=== PATIENT | female | born 1970 | race African-American/Black ===

== ENCOUNTER 2019-01-14 11:15 | Inpatient (IN) | payer OTHER ==
[2019-01-14 12:00] VITALS: BMI 40.7
--- NOTE | 2019-01-14 13:01 | HP ---
COWS - Scale Resting Pulse: 1= [place] 81-100 Sweatin=Flushed/Facial Moisture Restless Observation: 1= Difficult to Sit Still Pupil Size: 0= Normal to Room Light Bone or Joint Aches: 2= Severe Diffuse Aches (B/l hands, legs) Runny Nose/ Eye Tearin= Constantly Teary/Runny GI Upset > 30mins: 1= Stomach Cramp (nausea, no vomiting or diarrhea but feels its coming) Tremor Observation: 2= Slight Tremor Visible Yawning Observation: 0= None Anxiety or Irritability: 2=Irritable/Anxious Goose Flesh Skin: 0=Smooth Skin COWS Score: 15 CIWA Score - Admission Criteria OASAS Guidelines: Admission for Medically Managed Detox: Requires at least one of the followin. CIWA greater than 12 2. Seizures within the past 24 hours 3. Delirium tremens within the past 24 hours 4. Hallucinations within the past 24 hours 5. Acute intervention needed for co occurring medical disorder 6. Acute intervention needed for co occurring psychiatric disorder 7. Severe withdrawal that cannot be handled at a lower level of care (continued vomiting, continued diarrhea, abnormal vital signs) requiring intravenous medication and/or fluids 8. Admitting History and Physical - Admission History of Present Illness: 48 y.o. F PMH HTN, DM type 2 presenting for heroin detox. Has done detox and rehab in the past (finished this March) in [facility]. Heroin: Daily use. Uses 10 bags/ day. Last used this morning, 1 bag. Snorts, never injected in the past. Since age 13. Longest sober period 6.5 months. Cigarettes: 10 cigarettes per day for over 30 years. PSH: hysterectomy, cholecystectomy SH: Lives in [facility] in [place]. Lives w/ 5 roommates. Not currently working. Good family support system. All:None Meds: metformin, lisinopril, seroquel, trazadone Family hx: diabetes, htn both sides - Past Medical History Cardiovascular: Yes: HTN Endocrine: Yes: Diabetes Mellitus - Past Surgical History Past Surgical History: Yes: Cholecystectomy, Hysterectomy - Smoking History Smoking history: Current every day smoker Have you smoked in the past 12 months: Yes Aproximately how many cigarettes per day: 10 - Alcohol/Substance Use Hx Alcohol Use: No - Social History Usual Living Arrangement: Yes: Other (city housing with roommates) History of Recent Travel: No Admission ROS [facility] - HPI Allergies/Adverse Reactions: Allergies Allergy/AdvReac Type Severity Reaction Status Date / Time No Known Allergies Allergy Verified 01/14/19 11:45 - Ebola screening Have you traveled outside of the country in the last 21 days: No Have you had contact with anyone from an Ebola affected area: No Do you have a fever: No - Review of Systems Constitutional: Chills, Diaphoresis, Weakness EENT: reports: No Symptoms Reported Respiratory: reports: No Symptoms reported Cardiac: reports: No Symptoms Reported GI: reports: Nausea : reports: Other (itching) Musculoskeletal: reports: Joint Pain Integumentary: reports: No Symptoms Reported Neuro: reports: No Symptoms reported Endocrine: reports: No Symptoms Reported Hematology: reports: No Symptoms Reported Psychiatric: reports: Mood/Affect Appropiate Patient History - Smoking Cessation Smoking history: Current every day smoker Initiated information on smoking cessation: Yes - Substances abused Heroin Substance route: Inhalation Frequency: Daily Amount used: 10 bags Age of first use: 13 Date of last use: 01/14/19 Admission Physical Exam [facility] - Vital Signs Vital Signs: Vital Signs - 24 hr 01/14/19 11:53 Temperature 97.9 F Pulse Rate 91 H Respiratory 18 Rate Blood Pressure 136/91 - Physical General Appearance: Yes: Within Normal Limits Respiratory: Yes: Within Normal Limits, Lungs Clear, Normal Breath Sounds Neck: Yes: Within Normal Limits Cardiology: Yes: Within Normal Limits, Regular Rhythm, Regular Rate, S1, S2 Abdominal: Yes: Normal Bowel Sounds, Non Tender, Soft Back: Yes: Within Normal Limits Musculoskeletal: Yes: Within Normal Limits Extremities: Yes: Within Normal Limits Neurological: Yes: car oiler II-XII NML intact, Alert Integumentary: Yes: Within Normal Limits - Diagnostic (1) Opioid abuse Current Visit: Yes Status: Acute Cleared for Admission [facility] - Detox or Rehab [facility] Level of Care: Medically Supervised Screened but not Admitted - Documentation of Visit Screened but not Admitted: No Breathalyzer - Breathalyzer Breathalyzer: 0 Urine Drug Screen - Test Device Lot number: [id number] Expiration date: 09/20/20 - Control Is test valid?: Yes - Results Drug screen NEGATIVE: No Urine drug screen results: FEN-Fentanyl, MOP-Opiates Inpatient Rehab Admission - Rehab Decision to Admit Inpatient rehab admission?: No
[2019-01-14] MEDS ORDERED: MAG HYDROX/AL HYDROX/SIMETH 30 ML UNIT-DOSE CUP PO PRN (13:32)
[2019-01-14] MEDS ORDERED: NICOTINE POLACRILEX 2 MG GUM BUC PRN (13:32)
[2019-01-14] MEDS ORDERED: BISMUTH SUBSALICYLATE 262 MG/15 ML BTL PO PRN (13:32)
[2019-01-14] MEDS ORDERED: MAGNESIUM HYDROX 2400MG/30ML ORAL SUSPENSION 30 ML CUP PO PRN (13:32)
[2019-01-14] MEDS ORDERED: IBUPROFEN 400 MG TABLET (FP) PO PRN (13:32)
[2019-01-14] MEDS ORDERED: METHOCARBAMOL 500 MG TABLET PO PRN (13:32)
[2019-01-14] MEDS ORDERED: MENTHOL/PHENOL 1 EACH UD MM PRN (13:32)
[2019-01-14] MEDS ORDERED: MAGNESIUM CITRATE 300 ML BOTTLE PO PRN (13:32)
[2019-01-14] MEDS ORDERED: MELATONIN 5 MG TABLETS PO PRN (13:32)
[2019-01-14] MEDS ORDERED: ACETAMINOPHEN 325 MG TABLET (FP) PO PRN ×2 (13:32)
--- NOTE | 2019-01-14 13:37 | PN ---
Teaching Attending Note Name of Resident: Chloé Horner ATTENDING PHYSICIAN STATEMENT I saw and evaluated the patient. I reviewed the resident's note and discussed the case with the resident. I agree with the resident's findings and plan as documented. SUBJECTIVE: 48 y.o. pt here for opioid use , reports 10 bags heroin via inhalation daily , most recent detox 1 yr ago in [place] , referred to this facility by [facility] [employer] . PMHx : HTN, DM type 2 tobacco : 1/2 ppd PSH: hysterectomy, cholecystectomy OBJECTIVE: wnwd Vital Signs - 24 hr 01/14/19 11:53 Temperature 97.9 F Pulse Rate 91 H Respiratory 18 Rate Blood Pressure 136/91 QTc 453 ms 1st deg AV block ASSESSMENT AND PLAN: Opioid dependence - Methadone detox f/up w/ PCP , cardiology as scheduled .
[2019-01-14] MEDS ORDERED: cloNIDine HCL 0.1 MG TABLET PO PRN (14:50)
[2019-01-14] MEDS ORDERED: METHADONE HCL 10 MG TABLET (FOR DETOX USE ONLY) PO ONE (14:50)
[2019-01-14] MEDS: NICOTINE 14 MG/24 HOURS TOPICAL PATCH TD SCH (14:54)
[2019-01-14] MEDS ORDERED: FLUCONAZOLE 150 MG TABLET PO SCH (15:00)
[2019-01-14] MEDS ORDERED: FLUCONAZOLE 50 MG TABLET PO SCH (15:00)
[2019-01-14] MEDS: LISINOPRIL 10 MG TABLET (FP) PO SCH (15:12)
--- NOTE | 2019-01-14 15:53 | EKG ---
Test Reason : Blood Pressure : / mmHG Vent. Rate : 071 BPM Atrial Rate : 071 BPM P-R Int : 220 ms QRS Dur : 080 ms QT Int : 420 ms P-R-T Axes : 046 031 028 degrees QTc Int : 456 ms SINUS RHYTHM WITH 1ST DEGREE A-V BLOCK OTHERWISE NORMAL ECG NO PREVIOUS ECGS AVAILABLE Confirmed by ABNER MCGREGOR, FAINA ([id number]) on 01/14/2019 3:52:51 PM Referred By: Confirmed By:FAINA LEVINE MD
[2019-01-14 18:37] LABS: HEMATOCRIT 40.3 % (32.4-45.2); HEMOGLOBIN 12.8 GM/dL (10.7-15.3); MCH 25.4 pg (25.7-33.7); MCHC 31.7 g/dl (32.0-36.0); MEAN CELL VOLUME 80.1 fl (80-96); MEAN PLT VOLUME 8.1 fl (7.5-11.1); PLATELET COUNT 419 K/MM3 (134-434); RBC 5.04 M/mm3 (3.60-5.2); RDW 15.9 % (11.6-15.6); WHITE BLOOD COUNT 9.5 K/mm3 (4.0-10.0)
[2019-01-14 18:47] LABS: ALBUMIN 3.6 g/dl (3.4-5.0); BILIRUBIN,TOTAL 0.3 mg/dL (0.2-1); BLOOD UREA NITROGEN 10.9 mg/dL (7-18); CALCIUM 9.4 mg/dL (8.5-10.1); POTASSIUM 4.4 mmol/L (3.5-5.1); TOT PROT 7.9 g/dl (6.4-8.2)
[2019-01-14] MEDS: QUEtiapine FUMARATE 200 MG TABLET PO SCH (22:30)
[2019-01-14] MEDS: THIAMINE HCL 100 MG TABLET (FP) PO SCH (22:31)
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
[2019-01-15] MEDS ORDERED: SUVOREXANT 10 MG TABLET PO PRN ×2 (08:54→22:00)
[2019-01-15] MEDS ORDERED: METHADONE HCL 5 MG TABLET (FOR DETOX USE ONLY) ONE (09:02)
[2019-01-15] MEDS ORDERED: METHADONE HCL 10 MG TABLET (FOR DETOX USE ONLY) ONE (09:02)
[2019-01-15] MEDS ORDERED: METHADONE (DETOX) 20 MG, METHADONE (DETOX) 5 MG PO ONE (10:00)
[2019-01-15] MEDS: PRENATAL VITAMINS W/ FOLIC ACID TABLET (FP) PO SCH (10:25)
[2019-01-15] MEDS: LISINOPRIL 10 MG TABLET (FP) PO SCH (10:26)
[2019-01-15] MEDS: NICOTINE 14 MG/24 HOURS TOPICAL PATCH TD SCH (10:26)
--- NOTE | 2019-01-15 11:11 | PN ---
BHS COWS - Scale Resting Pulse: 1= [place] [id number] Sweatin= Chills/Flushing Restless Observation: 1= Difficult to Sit Still Pupil Size: 1= Pupils >than Normal Bone or Joint Aches: 2= Severe Diffuse Aches Runny Nose/ Eye Tearin= Nasal Congestion GI Upset > 30mins: 2= Nausea/Diarrhea Tremor Observation of Outstretched Hands: 0= None Yawning Observation: 0= None Anxiety or Irritability: 1=Feels Anxious/Irritable Goose Flesh Skin: 0=Smooth Skin COWS Score: 10 BHS Progress Note (SOAP) Subjective: interrupted sleep, sweats, nausea Objective: 01/15/19 11:09 Vital Signs Temperature 98.1 F 01/15/19 09:53 Pulse Rate 86 01/15/19 09:53 Respiratory Rate 16 01/15/19 09:53 Blood Pressure 122/70 01/15/19 09:53 O2 Sat by Pulse Oximetry (%) Laboratory Tests 01/14/19 01/14/19 01/14/19 12:50 14:13 14:20 WBC RBC Hgb Hct MCV MCH MCHC RDW Plt Count MPV Sodium Potassium Chloride Carbon Dioxide Anion Gap BUN Creatinine Est GFR (CKD-EPI)AfAm Est GFR (CKD-EPI)NonAf POC Glucometer 116 Random Glucose Calcium Total Bilirubin AST ALT Alkaline Phosphatase Total Protein Albumin POC Urine HCG, Qual Negative HIV 1&2 Antibody Screen Negative HIV P24 Antigen Negative 01/14/19 01/14/19 01/14/19 14:50 14:50 16:29 WBC 9.5 RBC 5.04 Hgb 12.8 Hct 40.3 MCV 80.1 MCH 25.4 L MCHC 31.7 L RDW 15.9 H Plt Count 419 MPV 8.1 Sodium 140 Potassium 4.4 Chloride 106 Carbon Dioxide 31 Anion Gap 3 L BUN 10.9 Creatinine 1.0 Est GFR (CKD-EPI)AfAm 77.15 Est GFR (CKD-EPI)NonAf 66.57 POC Glucometer 158 Random Glucose 92 Calcium 9.4 Total Bilirubin 0.3 AST 10 L ALT 14 Alkaline Phosphatase 94 Total Protein 7.9 Albumin 3.6 POC Urine HCG, Qual HIV 1&2 Antibody Screen HIV P24 Antigen 01/15/19 07:15 WBC RBC Hgb Hct MCV MCH MCHC RDW Plt Count MPV Sodium Potassium Chloride Carbon Dioxide Anion Gap BUN Creatinine Est GFR (CKD-EPI)AfAm Est GFR (CKD-EPI)NonAf POC Glucometer 117 Random Glucose Calcium Total Bilirubin AST ALT Alkaline Phosphatase Total Protein Albumin POC Urine HCG, Qual HIV 1&2 Antibody Screen HIV P24 Antigen pt aox3 lying in bed in [facility] . Assessment: 01/15/19 11:10 withdrawal sx's Plan: cont. detox increase fluids f/up pending labs
[2019-01-15] MEDS ORDERED: FLU VACCINE QUAD 60 MCG/0.5 ML (MDV 19-20) IM ONE (12:00)
[2019-01-15] MEDS: QUEtiapine FUMARATE 200 MG TABLET PO SCH (12:35)
[2019-01-15] MEDS: ARIPiprazole 10 MG TABLET PO SCH (14:34)
[2019-01-15] MEDS: THIAMINE HCL 100 MG TABLET (FP) PO SCH (22:23)
[2019-01-15] MEDS: SUVOREXANT 10 MG TABLET PO PRN (22:23)
[2019-01-16] MEDS ORDERED: METHADONE HCL 10 MG TABLET (FOR DETOX USE ONLY) PO ONE (10:00)
[2019-01-16] MEDS: ARIPiprazole 10 MG TABLET PO SCH (11:02)
[2019-01-16] MEDS: hydrOXYzine PAMOATE 25 MG CAPSULE (FP) PO PRN ×2 (11:07→21:41)
[2019-01-16] MEDS: PRENATAL VITAMINS W/ FOLIC ACID TABLET (FP) PO SCH (11:08)
[2019-01-16] MEDS: NICOTINE 14 MG/24 HOURS TOPICAL PATCH TD SCH (11:08)
[2019-01-16] MEDS: LISINOPRIL 10 MG TABLET (FP) PO SCH (11:29)
[2019-01-16] MEDS ORDERED: FLU VACCINE QUAD 60 MCG/0.5 ML (MDV 19-20) IM ONE (12:00)
--- NOTE | 2019-01-16 13:26 | PN ---
BHS COWS - Scale Resting Pulse: 0= [place] 80 or Below Sweatin= Beads of Sweat on Face Restless Observation: 1= Difficult to Sit Still Pupil Size: 0= Normal to Room Light Bone or Joint Aches: 2= Severe Diffuse Aches Runny Nose/ Eye Tearin= None GI Upset > 30mins: 0= None Tremor Observation of Outstretched Hands: 0= None Yawning Observation: 0= None Anxiety or Irritability: 2=Irritable/Anxious Goose Flesh Skin: 0=Smooth Skin COWS Score: 8 BHS Progress Note (SOAP) Subjective: c/o sweats, headache, muscle aches, and anxiety. Objective: 01/16/19 13:25 Vital Signs 01/16/19 01/16/19 06:47 08:00 Temperature 97.7 F 99 F Pulse Rate 67 85 Respiratory 20 Rate Blood Pressure 95/60 106/66 Lab Results WBC 9.5 K/mm3 (4.0-10.0) 01/14/19 14:50 RBC 5.04 M/mm3 (3.60-5.2) 01/14/19 14:50 Hgb 12.8 GM/dL (10.7-15.3) 01/14/19 14:50 Hct 40.3 % (32.4-45.2) 01/14/19 14:50 MCV 80.1 fl (80-96) 01/14/19 14:50 MCHC 31.7 g/dl (32.0-36.0) L 01/14/19 14:50 RDW 15.9 % (11.6-15.6) H 01/14/19 14:50 Plt Count 419 K/MM3 (134-434) 01/14/19 14:50 Sodium 140 mmol/L (136-145) 01/14/19 14:50 Potassium 4.4 mmol/L (3.5-5.1) 01/14/19 14:50 Chloride 106 mmol/L (98-107) 01/14/19 14:50 Carbon Dioxide 31 mmol/L (21-32) 01/14/19 14:50 Anion Gap 3 MMOL/L (8-16) L 01/14/19 14:50 BUN 10.9 mg/dL (7-18) 01/14/19 14:50 Creatinine 1.0 mg/dL (0.55-1.3) 01/14/19 14:50 Random Glucose 92 mg/dL (74-106) 01/14/19 14:50 Calcium 9.4 mg/dL (8.5-10.1) 01/14/19 14:50 Labs noted. Assessment: 01/16/19 13:26 AOX3, in no acute respiratory distress. Full ROM, ambulating in the unit. withdrawal symptoms. Plan: continue detox.
[2019-01-16] MEDS: SUVOREXANT 10 MG TABLET PO PRN (21:41)
[2019-01-16] MEDS: THIAMINE HCL 100 MG TABLET (FP) PO SCH (21:41)
[2019-01-17] MEDS: hydrOXYzine PAMOATE 25 MG CAPSULE (FP) PO PRN ×4 (05:25→23:50)
[2019-01-17] MEDS ORDERED: METHADONE HCL 5 MG TABLET (FOR DETOX USE ONLY) ONE (09:37)
[2019-01-17] MEDS ORDERED: METHADONE HCL 10 MG TABLET (FOR DETOX USE ONLY) ONE (09:38)
[2019-01-17] MEDS ORDERED: METHADONE (DETOX) 10 MG, METHADONE (DETOX) 5 MG PO ONE (10:00)
[2019-01-17] MEDS: ARIPiprazole 10 MG TABLET PO SCH (10:43)
[2019-01-17] MEDS: PRENATAL VITAMINS W/ FOLIC ACID TABLET (FP) PO SCH (10:43)
[2019-01-17] MEDS: NICOTINE 14 MG/24 HOURS TOPICAL PATCH TD SCH (10:43)
[2019-01-17] MEDS: LISINOPRIL 10 MG TABLET (FP) PO SCH (10:44)
--- NOTE | 2019-01-17 16:22 | PN ---
BHS COWS - Scale Resting Pulse: 0= [place] 80 or Below Sweatin= Chills/Flushing Restless Observation: 0= Sits Still Pupil Size: 0= Normal to Room Light Bone or Joint Aches: 1= Mild Discomfort Runny Nose/ Eye Tearin= None GI Upset > 30mins: 1= Stomach Cramp Tremor Observation of Outstretched Hands: 2= Slight Tremor Visible Yawning Observation: 1= 1-2x During Session Anxiety or Irritability: 1=Feels Anxious/Irritable Goose Flesh Skin: 0=Smooth Skin COWS Score: 7 BHS Progress Note (SOAP) Subjective: Chills, sweating, interrupted sleep Objective: 01/17/19 16:20 Last Vital Signs Temp Pulse Resp BP Pulse Ox 99.1 F 71 18 122/74 01/17/19 14:00 01/17/19 14:00 01/17/19 14:00 01/17/19 14:00 Laboratory Tests 01/14/19 01/14/19 01/14/19 12:50 14:13 14:20 WBC RBC Hgb Hct MCV MCH MCHC RDW Plt Count MPV Sodium Potassium Chloride Carbon Dioxide Anion Gap BUN Creatinine Est GFR (CKD-EPI)AfAm Est GFR (CKD-EPI)NonAf POC Glucometer 116 Random Glucose Calcium Total Bilirubin AST ALT Alkaline Phosphatase Total Protein Albumin POC Urine HCG, Qual Negative RPR Titer HIV 1&2 Antibody Screen Negative HIV P24 Antigen Negative 01/14/19 01/14/19 01/14/19 14:50 14:50 14:50 WBC 9.5 RBC 5.04 Hgb 12.8 Hct 40.3 MCV 80.1 MCH 25.4 L MCHC 31.7 L RDW 15.9 H Plt Count 419 MPV 8.1 Sodium 140 Potassium 4.4 Chloride 106 Carbon Dioxide 31 Anion Gap 3 L BUN 10.9 Creatinine 1.0 Est GFR (CKD-EPI)AfAm 77.15 Est GFR (CKD-EPI)NonAf 66.57 POC Glucometer Random Glucose 92 Calcium 9.4 Total Bilirubin 0.3 AST 10 L ALT 14 Alkaline Phosphatase 94 Total Protein 7.9 Albumin 3.6 POC Urine HCG, Qual RPR Titer Nonreactive HIV 1&2 Antibody Screen HIV P24 Antigen 01/14/19 01/15/19 01/15/19 16:29 07:15 17:04 WBC RBC Hgb Hct MCV MCH MCHC RDW Plt Count MPV Sodium Potassium Chloride Carbon Dioxide Anion Gap BUN Creatinine Est GFR (CKD-EPI)AfAm Est GFR (CKD-EPI)NonAf POC Glucometer 158 117 89 Random Glucose Calcium Total Bilirubin AST ALT Alkaline Phosphatase Total Protein Albumin POC Urine HCG, Qual RPR Titer HIV 1&2 Antibody Screen HIV P24 Antigen 01/16/19 01/17/19 16:52 05:27 WBC RBC Hgb Hct MCV MCH MCHC RDW Plt Count MPV Sodium Potassium Chloride Carbon Dioxide Anion Gap BUN Creatinine Est GFR (CKD-EPI)AfAm Est GFR (CKD-EPI)NonAf POC Glucometer 74 100 Random Glucose Calcium Total Bilirubin AST ALT Alkaline Phosphatase Total Protein Albumin POC Urine HCG, Qual RPR Titer HIV 1&2 Antibody Screen HIV P24 Antigen Labs reviewed Assessment: 01/17/19 16:21 Withdrawal sxs Plan: Continue detox Encouraged PO water intake
[2019-01-17] MEDS: SUVOREXANT 10 MG TABLET PO PRN (23:00)
[2019-01-17] MEDS: THIAMINE HCL 100 MG TABLET (FP) PO SCH (23:00)
[2019-01-18] MEDS: hydrOXYzine PAMOATE 25 MG CAPSULE (FP) PO PRN ×2 (08:41→18:54)
[2019-01-18] MEDS ORDERED: METHADONE HCL 10 MG TABLET (FOR DETOX USE ONLY) PO ONE (10:00)
[2019-01-18] MEDS: PRENATAL VITAMINS W/ FOLIC ACID TABLET (FP) PO SCH (11:12)
[2019-01-18] MEDS: ARIPiprazole 10 MG TABLET PO SCH (11:12)
[2019-01-18] MEDS: NICOTINE 14 MG/24 HOURS TOPICAL PATCH TD SCH (11:12)
[2019-01-18] MEDS: LISINOPRIL 10 MG TABLET (FP) PO SCH (11:13)
--- NOTE | 2019-01-18 12:55 | PN ---
BHS COWS - Scale Resting Pulse: 0= [place] 80 or Below Sweatin= No chills or Flushing Restless Observation: 0= Sits Still Pupil Size: 1= Pupils >than Normal Bone or Joint Aches: 2= Severe Diffuse Aches Runny Nose/ Eye Tearin= None GI Upset > 30mins: 0= None Tremor Observation of Outstretched Hands: 0= None Yawning Observation: 0= None Anxiety or Irritability: 2=Irritable/Anxious Goose Flesh Skin: 0=Smooth Skin COWS Score: 5 BHS Progress Note (SOAP) Subjective: PATIENT CURRENTLY ON METHADONE DETOX FOR OPIOD DEPENDENCE. ROS: PATIENT C/O BODY ACHES, SLEEP DISTURBANCE AND FEELING ANXIOUS. Objective: 01/18/19 12:53 Laboratory Tests 01/14/19 01/14/19 01/14/19 12:50 14:13 14:20 WBC RBC Hgb Hct MCV MCH MCHC RDW Plt Count MPV Sodium Potassium Chloride Carbon Dioxide Anion Gap BUN Creatinine Est GFR (CKD-EPI)AfAm Est GFR (CKD-EPI)NonAf POC Glucometer 116 Random Glucose Calcium Total Bilirubin AST ALT Alkaline Phosphatase Total Protein Albumin POC Urine HCG, Qual Negative RPR Titer HIV 1&2 Antibody Screen Negative HIV P24 Antigen Negative 01/14/19 01/14/19 01/14/19 14:50 14:50 14:50 WBC 9.5 RBC 5.04 Hgb 12.8 Hct 40.3 MCV 80.1 MCH 25.4 L MCHC 31.7 L RDW 15.9 H Plt Count 419 MPV 8.1 Sodium 140 Potassium 4.4 Chloride 106 Carbon Dioxide 31 Anion Gap 3 L BUN 10.9 Creatinine 1.0 Est GFR (CKD-EPI)AfAm 77.15 Est GFR (CKD-EPI)NonAf 66.57 POC Glucometer Random Glucose 92 Calcium 9.4 Total Bilirubin 0.3 AST 10 L ALT 14 Alkaline Phosphatase 94 Total Protein 7.9 Albumin 3.6 POC Urine HCG, Qual RPR Titer Nonreactive HIV 1&2 Antibody Screen HIV P24 Antigen 01/14/19 01/15/19 01/15/19 16:29 07:15 17:04 WBC RBC Hgb Hct MCV MCH MCHC RDW Plt Count MPV Sodium Potassium Chloride Carbon Dioxide Anion Gap BUN Creatinine Est GFR (CKD-EPI)AfAm Est GFR (CKD-EPI)NonAf POC Glucometer 158 117 89 Random Glucose Calcium Total Bilirubin AST ALT Alkaline Phosphatase Total Protein Albumin POC Urine HCG, Qual RPR Titer HIV 1&2 Antibody Screen HIV P24 Antigen 01/16/19 01/17/19 01/17/19 16:52 05:27 16:24 WBC RBC Hgb Hct MCV MCH MCHC RDW Plt Count MPV Sodium Potassium Chloride Carbon Dioxide Anion Gap BUN Creatinine Est GFR (CKD-EPI)AfAm Est GFR (CKD-EPI)NonAf POC Glucometer 74 100 86 Random Glucose Calcium Total Bilirubin AST ALT Alkaline Phosphatase Total Protein Albumin POC Urine HCG, Qual RPR Titer HIV 1&2 Antibody Screen HIV P24 Antigen Vital Signs Temperature 99.0 F 01/18/19 09:53 Pulse Rate 68 01/18/19 09:53 Respiratory Rate 20 01/18/19 09:53 Blood Pressure 114/69 01/18/19 09:53 O2 Sat by Pulse Oximetry (%) PE: ALERT AND ORIENTED X 3 SKIN WARM AND DRY PUPILS MILDLY DILATED, EOMS INTACT BL NECK SUPPLE, NO JVD GI NT, ND EXT FULL ROM, NO TREMORS Assessment: 01/18/19 12:54 OPIOD WITHDRAWAL SX Plan: CONTINUE DETOX FOR D/C IN AM D/C ROBAXIN, ADD FLEXERIL FOR BODY ACHES
[2019-01-18] MEDS: CYCLOBENZAPRINE HCL 5 MG TABLET PO SCH ×2 (14:55→22:34)
[2019-01-18] MEDS: THIAMINE HCL 100 MG TABLET (FP) PO SCH (22:34)
[2019-01-19] MEDS ORDERED: METHADONE HCL 5 MG TABLET (FOR DETOX USE ONLY) PO ONE (06:00)
[2019-01-19] MEDS: hydrOXYzine PAMOATE 25 MG CAPSULE (FP) PO PRN (06:12)
[2019-01-19] MEDS: CYCLOBENZAPRINE HCL 5 MG TABLET PO SCH (06:20)
--- NOTE | 2019-01-19 09:15 | DS ---
[facility] Detox Discharge Summary Admission Date: 01/14/19 Discharge Date: 01/19/19 - History Present History: Opioid Dependence - Physical Exam Results Vital Signs: Vital Signs Temperature 98.1 F 01/19/19 06:00 Pulse Rate 71 01/19/19 06:00 Respiratory Rate 18 01/19/19 06:00 Blood Pressure 98/67 01/19/19 06:00 O2 Sat by Pulse Oximetry (%) Pertinent Admission Physical Exam Findings: pt arrived in withdrawals Vital Signs Temperature 98.1 F 01/19/19 06:00 Pulse Rate 71 01/19/19 06:00 Respiratory Rate 18 01/19/19 06:00 Blood Pressure 98/67 01/19/19 06:00 O2 Sat by Pulse Oximetry (%) Laboratory Tests 01/14/19 01/14/19 01/14/19 12:50 14:13 14:20 WBC RBC Hgb Hct MCV MCH MCHC RDW Plt Count MPV Sodium Potassium Chloride Carbon Dioxide Anion Gap BUN Creatinine Est GFR (CKD-EPI)AfAm Est GFR (CKD-EPI)NonAf POC Glucometer 116 Random Glucose Calcium Total Bilirubin AST ALT Alkaline Phosphatase Total Protein Albumin POC Urine HCG, Qual Negative RPR Titer HIV 1&2 Antibody Screen Negative HIV P24 Antigen Negative 01/14/19 01/14/19 01/14/19 14:50 14:50 14:50 WBC 9.5 RBC 5.04 Hgb 12.8 Hct 40.3 MCV 80.1 MCH 25.4 L MCHC 31.7 L RDW 15.9 H Plt Count 419 MPV 8.1 Sodium 140 Potassium 4.4 Chloride 106 Carbon Dioxide 31 Anion Gap 3 L BUN 10.9 Creatinine 1.0 Est GFR (CKD-EPI)AfAm 77.15 Est GFR (CKD-EPI)NonAf 66.57 POC Glucometer Random Glucose 92 Calcium 9.4 Total Bilirubin 0.3 AST 10 L ALT 14 Alkaline Phosphatase 94 Total Protein 7.9 Albumin 3.6 POC Urine HCG, Qual RPR Titer Nonreactive HIV 1&2 Antibody Screen HIV P24 Antigen 01/14/19 01/15/19 01/15/19 16:29 07:15 17:04 WBC RBC Hgb Hct MCV MCH MCHC RDW Plt Count MPV Sodium Potassium Chloride Carbon Dioxide Anion Gap BUN Creatinine Est GFR (CKD-EPI)AfAm Est GFR (CKD-EPI)NonAf POC Glucometer 158 117 89 Random Glucose Calcium Total Bilirubin AST ALT Alkaline Phosphatase Total Protein Albumin POC Urine HCG, Qual RPR Titer HIV 1&2 Antibody Screen HIV P24 Antigen 01/16/19 01/17/19 01/17/19 16:52 05:27 16:24 WBC RBC Hgb Hct MCV MCH MCHC RDW Plt Count MPV Sodium Potassium Chloride Carbon Dioxide Anion Gap BUN Creatinine Est GFR (CKD-EPI)AfAm Est GFR (CKD-EPI)NonAf POC Glucometer 74 100 86 Random Glucose Calcium Total Bilirubin AST ALT Alkaline Phosphatase Total Protein Albumin POC Urine HCG, Qual RPR Titer HIV 1&2 Antibody Screen HIV P24 Antigen 01/18/19 01/19/19 16:36 06:08 WBC RBC Hgb Hct MCV MCH MCHC RDW Plt Count MPV Sodium Potassium Chloride Carbon Dioxide Anion Gap BUN Creatinine Est GFR (CKD-EPI)AfAm Est GFR (CKD-EPI)NonAf POC Glucometer 129 98 Random Glucose Calcium Total Bilirubin AST ALT Alkaline Phosphatase Total Protein Albumin POC Urine HCG, Qual RPR Titer HIV 1&2 Antibody Screen HIV P24 Antigen today pt is aaox3 ambulating no acute distress no s/s of withdrawals - Treatment Hospital Course: Detox Protocol Followed, Detoxed Safely, Responded well, Discharged Condition Good, Rehab Referral Accepted Patient has Accepted a Rehab Referral to: pt declined rehab; referred to outpatient rehab - Medication Discharge Medications: Ambulatory Orders Aripiprazole [Abilify] 20 mg PO DAILY 01/14/19 Fluconazole [Diflucan] 150 mg PO ONCE 01/14/19 Lisinopril 10 mg PO DAILY 01/14/19 Metformin HCl [Metformin HCl ER] 1,000 mg PO DAILY 01/14/19 Quetiapine Fumarate [Seroquel -] 200 mg PO BID 01/14/19 metroNIDAZOLE [Flagyl -] 500 mg PO BID 01/14/19 traZODone HCL [Trazodone HCl] 50 mg PO HS 01/14/19 - Diagnosis (1) Opioid dependence, uncomplicated Current Visit: Yes Status: Chronic (2) Substance-induced sleep disorder Current Visit: Yes Status: Acute (3) HTN (hypertension) Current Visit: Yes Status: Chronic Qualifiers: Hypertension type: essential hypertension Qualified Code(s): I10 - Essential (primary) hypertension (4) Mood disorder Current Visit: Yes Status: Chronic (5) Nicotine dependence Current Visit: Yes Status: Chronic (6) Type 2 diabetes mellitus Current Visit: Yes Status: Chronic (7) MDD (major depressive disorder) Current Visit: Yes Status: Ruled-out (8) Psychotic disorder Current Visit: Yes Status: Ruled-out - AMA Did Patient Leave Against Medical Advice: No
[2019-01-19] MEDS: ARIPiprazole 10 MG TABLET PO SCH (13:05)
[2019-01-19] MEDS: PRENATAL VITAMINS W/ FOLIC ACID TABLET (FP) PO SCH (13:06)
[2019-01-19] MEDS: NICOTINE 14 MG/24 HOURS TOPICAL PATCH TD SCH (13:06)
[2019-01-19] MEDS: LISINOPRIL 10 MG TABLET (FP) PO SCH (13:06)
[2019-01-19 13:26] VITALS: BP 115/63; PULSE 73; TEMP 98.6
== END 2019-01-19 13:39 | disposition other institution (70) | DRG 773 ==
LOC: YASAS 11:15 → Y6N 14:05
PROVIDERS: ADMIT Allergy & Immunology; ATTEND Allergy & Immunology
PROC: HZ2ZZZZ Detoxification Services for Substance Abuse Treatment (ICD-10-PCS; principal; 2019-01-14)
DX: F11.23 Opioid dependence with withdrawal (principal); F17.210 Nicotine dependence, cigarettes, uncomplicated; F19.282 Other psychoactive substance dependence with psychoactive substance-induced sleep disorder; F39 Unspecified mood [affective] disorder; I10 Essential (primary) hypertension; E11.9 Type 2 diabetes mellitus without complications; Z90.710 Acquired absence of both cervix and uterus; Z62.810 Personal history of physical and sexual abuse in childhood; Z79.84 Long term (current) use of oral hypoglycemic drugs
CPT/HCPCS: 36415; 80053; 81025; 82962; 85027; 86593; 87389; 93005; 93010; J0735; Q2036

== ENCOUNTER 2019-01-19 12:51 | Inpatient (IN) | payer OTHER ==
--- NOTE | 2019-01-19 11:54 | HP ---
SANDRA MCGREGOR Rehab Assess/Revision - Admission History Ad[facility] to [facility]hab [facility] - Findings Detox History & Physical reviewed: Yes Concur with findings: Yes Inpatient Rehab Admission - Rehab Decision to Admit Inpatient rehab admission?: Yes - Initial Determination Are CD services needed?: Yes Free of communicable disease: Yes Not in need of hospitalization: Yes - Rehab Admission Criteria Previous failed treatment: Yes Poor recovery environment: Yes Comorbidities: Yes Lacks judgement: Yes Patient is meeting Inpatient Rehab admission criteria:: Yes
[~2019-01-19 12:51] MED LIST: ACETAMINOPHEN 325 MG TABLET (FP) PO PRN; IBUPROFEN 400 MG TABLET (FP) PO PRN; LOPERAMIDE HCL 2 MG CAPSULE PO PRN; MAG HYDROX/AL HYDROX/SIMETH 30 ML UNIT-DOSE CUP PO PRN; MAGNESIUM CITRATE 300 ML BOTTLE PO PRN; MAGNESIUM HYDROX 2400MG/30ML ORAL SUSPENSION 30 ML CUP PO PRN; MENTHOL/PHENOL 1 EACH UD MM PRN; P-EPHED 60MG/TRIPROLIDI 2.5MG TABLET PO PRN; guaiFENesin 200 MG/10 ML 10 ML UNIT-DOSE CUPS PO PRN
[2019-01-19] MEDS: hydrOXYzine PAMOATE 50 MG CAPSULE (FP) PO PRN ×2 (15:24→21:37)
[2019-01-19] MEDS: SUVOREXANT 10 MG TABLET PO PRN (21:36)
[2019-01-19] MEDS: THIAMINE HCL 100 MG TABLET (FP) PO SCH (21:37)
[2019-01-19] MEDS: metroNIDAZOLE 0.75% VAGINAL GEL 70 GM TUBE VG SCH (22:03)
[2019-01-19] MEDS ORDERED: PT OWN MED DRAWER 7, Y5N ONE (22:11)
[2019-01-20] MEDS ORDERED: PT OWN MED DRAWER 7, Y5N ONE ×2 (03:26→19:39)
[2019-01-20] MEDS: hydrOXYzine PAMOATE 50 MG CAPSULE (FP) PO PRN ×3 (06:43→22:00)
[2019-01-20] MEDS: ARIPiprazole 10 MG TABLET PO SCH (09:12)
[2019-01-20] MEDS: PRENATAL VITAMINS W/ FOLIC ACID TABLET (FP) PO SCH (09:12)
[2019-01-20] MEDS: LISINOPRIL 10 MG TABLET (FP) PO SCH (09:13)
[2019-01-20] MEDS: NICOTINE 21 MG/24 HOURS TOPICAL PATCH TD SCH (09:13)
[2019-01-20] MEDS: THIAMINE HCL 100 MG TABLET (FP) PO SCH (21:57)
[2019-01-20] MEDS: SUVOREXANT 10 MG TABLET PO PRN (21:58)
[2019-01-20] MEDS: metroNIDAZOLE 0.75% VAGINAL GEL 70 GM TUBE VG SCH (21:59)
[2019-01-20] MEDS: MELATONIN 5 MG TABLETS PO PRN (22:01)
[2019-01-21] MEDS: hydrOXYzine PAMOATE 50 MG CAPSULE (FP) PO PRN ×3 (06:44→16:53)
[2019-01-21] MEDS: NICOTINE 21 MG/24 HOURS TOPICAL PATCH TD SCH (10:06)
[2019-01-21] MEDS: PRENATAL VITAMINS W/ FOLIC ACID TABLET (FP) PO SCH (10:07)
[2019-01-21] MEDS: LISINOPRIL 10 MG TABLET (FP) PO SCH (10:09)
[2019-01-21] MEDS: ARIPiprazole 10 MG TABLET PO SCH (10:10)
[2019-01-21] MEDS ORDERED: PT OWN MED DRAWER 7, Y5N ONE (18:26)
[2019-01-21] MEDS: THIAMINE HCL 100 MG TABLET (FP) PO SCH (21:17)
[2019-01-21] MEDS: MELATONIN 5 MG TABLETS PO PRN (21:18)
[2019-01-21] MEDS: CYCLOBENZAPRINE HCL 5 MG TABLET PO SCH (21:18)
[2019-01-21] MEDS: SUVOREXANT 10 MG TABLET PO PRN (21:19)
[2019-01-21] MEDS: metroNIDAZOLE 0.75% VAGINAL GEL 70 GM TUBE VG SCH (21:19)
[2019-01-22] MEDS: CYCLOBENZAPRINE HCL 5 MG TABLET PO SCH ×3 (06:53→21:28)
[2019-01-22] MEDS: ARIPiprazole 10 MG TABLET PO SCH (09:59)
[2019-01-22] MEDS: LISINOPRIL 10 MG TABLET (FP) PO SCH (09:59)
[2019-01-22] MEDS: NICOTINE 21 MG/24 HOURS TOPICAL PATCH TD SCH (10:00)
[2019-01-22] MEDS: PRENATAL VITAMINS W/ FOLIC ACID TABLET (FP) PO SCH (10:00)
[2019-01-22] MEDS: hydrOXYzine PAMOATE 50 MG CAPSULE (FP) PO PRN ×2 (10:01→21:33)
[2019-01-22] MEDS: THIAMINE HCL 100 MG TABLET (FP) PO SCH (21:28)
[2019-01-22] MEDS: SUVOREXANT 10 MG TABLET PO PRN (21:31)
[2019-01-22] MEDS: metroNIDAZOLE 0.75% VAGINAL GEL 70 GM TUBE VG SCH (21:39)
[2019-01-23] MEDS: CYCLOBENZAPRINE HCL 5 MG TABLET PO SCH ×3 (06:55→21:10)
[2019-01-23] MEDS: hydrOXYzine PAMOATE 50 MG CAPSULE (FP) PO PRN ×3 (06:55→21:10)
[2019-01-23] MEDS: cloNIDine HCL 0.1 MG TABLET PO PRN (08:55)
[2019-01-23] MEDS: ARIPiprazole 10 MG TABLET PO SCH (09:03)
[2019-01-23] MEDS: LISINOPRIL 10 MG TABLET (FP) PO SCH (09:03)
[2019-01-23] MEDS: PRENATAL VITAMINS W/ FOLIC ACID TABLET (FP) PO SCH (09:03)
[2019-01-23] MEDS: NICOTINE 21 MG/24 HOURS TOPICAL PATCH TD SCH (09:03)
[2019-01-23] MEDS ORDERED: PT OWN MED DRAWER 7, Y5N ONE ×2 (14:41→21:11)
[2019-01-23] MEDS: THIAMINE HCL 100 MG TABLET (FP) PO SCH (21:10)
[2019-01-23] MEDS: SUVOREXANT 10 MG TABLET PO PRN (21:10)
[2019-01-23] MEDS: metroNIDAZOLE 0.75% VAGINAL GEL 70 GM TUBE VG SCH (21:11)
[2019-01-24] MEDS: hydrOXYzine PAMOATE 50 MG CAPSULE (FP) PO PRN ×3 (06:18→21:40)
[2019-01-24] MEDS: CYCLOBENZAPRINE HCL 5 MG TABLET PO SCH ×3 (06:18→21:39)
[2019-01-24] MEDS: PRENATAL VITAMINS W/ FOLIC ACID TABLET (FP) PO SCH (09:45)
[2019-01-24] MEDS: LISINOPRIL 10 MG TABLET (FP) PO SCH (09:45)
[2019-01-24] MEDS: ARIPiprazole 10 MG TABLET PO SCH (09:45)
[2019-01-24] MEDS: cloNIDine HCL 0.1 MG TABLET PO PRN (09:46)
[2019-01-24] MEDS: NICOTINE 21 MG/24 HOURS TOPICAL PATCH TD SCH (09:46)
[2019-01-24] MEDS: THIAMINE HCL 100 MG TABLET (FP) PO SCH (21:39)
[2019-01-25] MEDS ORDERED: PT OWN MED DRAWER 7, Y5N ONE ×2 (03:21→13:48)
[2019-01-25] MEDS: CYCLOBENZAPRINE HCL 5 MG TABLET PO SCH ×3 (06:45→21:59)
[2019-01-25] MEDS: hydrOXYzine PAMOATE 50 MG CAPSULE (FP) PO PRN ×3 (06:46→21:59)
[2019-01-25] MEDS: ARIPiprazole 10 MG TABLET PO SCH (10:38)
[2019-01-25] MEDS: PRENATAL VITAMINS W/ FOLIC ACID TABLET (FP) PO SCH (10:39)
[2019-01-25] MEDS: NICOTINE 21 MG/24 HOURS TOPICAL PATCH TD SCH (10:39)
[2019-01-25] MEDS: LISINOPRIL 10 MG TABLET (FP) PO SCH (10:39)
[2019-01-25] MEDS: cloNIDine HCL 0.1 MG TABLET PO PRN ×2 (12:58→21:59)
[2019-01-25] MEDS: THIAMINE HCL 100 MG TABLET (FP) PO SCH (21:59)
[2019-01-25] MEDS: SUVOREXANT 10 MG TABLET PO PRN (22:00)
[2019-01-26] MEDS: CYCLOBENZAPRINE HCL 5 MG TABLET PO SCH ×3 (07:13→21:47)
[2019-01-26] MEDS: hydrOXYzine PAMOATE 50 MG CAPSULE (FP) PO PRN ×2 (07:14→21:53)
[2019-01-26] MEDS: NICOTINE 21 MG/24 HOURS TOPICAL PATCH TD SCH (10:10)
[2019-01-26] MEDS: PRENATAL VITAMINS W/ FOLIC ACID TABLET (FP) PO SCH (10:10)
[2019-01-26] MEDS: ARIPiprazole 10 MG TABLET PO SCH (10:10)
[2019-01-26] MEDS: cloNIDine HCL 0.1 MG TABLET PO PRN (10:11)
[2019-01-26] MEDS: NICOTINE POLACRILEX 4 MG GUM BUC PRN (10:11)
[2019-01-26] MEDS: LISINOPRIL 10 MG TABLET (FP) PO SCH (10:11)
[2019-01-26] MEDS: MELATONIN 5 MG TABLETS PO PRN (21:47)
[2019-01-26] MEDS: THIAMINE HCL 100 MG TABLET (FP) PO SCH (21:47)
[2019-01-27] MEDS: CYCLOBENZAPRINE HCL 5 MG TABLET PO SCH (06:25)
[2019-01-27] MEDS: PRENATAL VITAMINS W/ FOLIC ACID TABLET (FP) PO SCH (09:26)
[2019-01-27] MEDS: LISINOPRIL 10 MG TABLET (FP) PO SCH (09:26)
[2019-01-27] MEDS: hydrOXYzine PAMOATE 50 MG CAPSULE (FP) PO PRN ×2 (09:26→21:29)
[2019-01-27] MEDS: ARIPiprazole 10 MG TABLET PO SCH (09:26)
[2019-01-27] MEDS: cloNIDine HCL 0.1 MG TABLET PO PRN (09:26)
[2019-01-27] MEDS: NICOTINE 21 MG/24 HOURS TOPICAL PATCH TD SCH (09:27)
[2019-01-27] MEDS: CYCLOBENZAPRINE HCL 5 MG TABLET PO PRN (21:28)
[2019-01-27] MEDS: THIAMINE HCL 100 MG TABLET (FP) PO SCH (21:28)
[2019-01-27] MEDS: SUVOREXANT 10 MG TABLET PO PRN (21:29)
[2019-01-28] MEDS: cloNIDine HCL 0.1 MG TABLET PO PRN (08:41)
[2019-01-28] MEDS: ARIPiprazole 10 MG TABLET PO SCH (09:50)
[2019-01-28] MEDS: PRENATAL VITAMINS W/ FOLIC ACID TABLET (FP) PO SCH (09:50)
[2019-01-28] MEDS: NICOTINE 21 MG/24 HOURS TOPICAL PATCH TD SCH (09:51)
[2019-01-28] MEDS: LISINOPRIL 10 MG TABLET (FP) PO SCH (09:51)
[2019-01-28] MEDS: MELATONIN 5 MG TABLETS PO PRN (21:21)
[2019-01-28] MEDS: hydrOXYzine PAMOATE 50 MG CAPSULE (FP) PO PRN (21:21)
[2019-01-28] MEDS: CYCLOBENZAPRINE HCL 5 MG TABLET PO PRN (21:22)
[2019-01-28] MEDS: THIAMINE HCL 100 MG TABLET (FP) PO SCH (21:22)
[2019-01-29] MEDS: CYCLOBENZAPRINE HCL 5 MG TABLET PO PRN (07:35)
[2019-01-29] MEDS ORDERED: ONDANSETRON *ODT* 4 MG TABLET SL PRN (08:27)
[2019-01-29] MEDS: ARIPiprazole 10 MG TABLET PO SCH (09:50)
[2019-01-29] MEDS: NICOTINE 21 MG/24 HOURS TOPICAL PATCH TD SCH (09:51)
[2019-01-29] MEDS: LISINOPRIL 10 MG TABLET (FP) PO SCH (09:51)
[2019-01-29] MEDS: TOLNAFTATE 1% CREAM 15 GM TUBE TP SCH ×2 (09:51→21:31)
[2019-01-29] MEDS: PRENATAL VITAMINS W/ FOLIC ACID TABLET (FP) PO SCH (09:51)
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
[2019-01-29] MEDS: THIAMINE HCL 100 MG TABLET (FP) PO SCH (21:30)
[2019-01-29] MEDS: SUVOREXANT 15 MG TABLET PO PRN (21:30)
[2019-01-29] MEDS: hydrOXYzine PAMOATE 50 MG CAPSULE (FP) PO PRN (21:30)
[2019-01-30] MEDS: hydrOXYzine PAMOATE 50 MG CAPSULE (FP) PO PRN ×3 (06:50→21:15)
[2019-01-30] MEDS: CYCLOBENZAPRINE HCL 5 MG TABLET PO PRN ×2 (06:50→16:53)
[2019-01-30] MEDS: LISINOPRIL 10 MG TABLET (FP) PO SCH (09:39)
[2019-01-30] MEDS: PRENATAL VITAMINS W/ FOLIC ACID TABLET (FP) PO SCH (09:39)
[2019-01-30] MEDS: NICOTINE POLACRILEX 4 MG GUM BUC PRN (09:40)
[2019-01-30] MEDS: ARIPiprazole 10 MG TABLET PO SCH (09:40)
[2019-01-30] MEDS: NICOTINE 21 MG/24 HOURS TOPICAL PATCH TD SCH (09:40)
[2019-01-30] MEDS: TOLNAFTATE 1% CREAM 15 GM TUBE TP SCH ×2 (09:41→21:16)
[2019-01-30] MEDS ORDERED: PT OWN MED DRAWER 7, Y5N ONE (19:08)
[2019-01-30] MEDS: THIAMINE HCL 100 MG TABLET (FP) PO SCH (21:15)
[2019-01-30] MEDS: SUVOREXANT 15 MG TABLET PO PRN (21:15)
[2019-01-31] MEDS: CYCLOBENZAPRINE HCL 5 MG TABLET PO PRN ×2 (06:50→21:41)
[2019-01-31] MEDS: hydrOXYzine PAMOATE 50 MG CAPSULE (FP) PO PRN ×3 (06:50→21:41)
[2019-01-31] MEDS: cloNIDine HCL 0.1 MG TABLET PO PRN (08:39)
[2019-01-31] MEDS ORDERED: PT OWN MED DRAWER 7, Y5N ONE (08:47)
[2019-01-31] MEDS: NICOTINE 21 MG/24 HOURS TOPICAL PATCH TD SCH (10:16)
[2019-01-31] MEDS: ARIPiprazole 10 MG TABLET PO SCH (10:16)
[2019-01-31] MEDS: TOLNAFTATE 1% CREAM 15 GM TUBE TP SCH ×2 (10:16→21:43)
[2019-01-31] MEDS: LISINOPRIL 10 MG TABLET (FP) PO SCH (10:16)
[2019-01-31] MEDS: PRENATAL VITAMINS W/ FOLIC ACID TABLET (FP) PO SCH (10:16)
[2019-01-31] MEDS: THIAMINE HCL 100 MG TABLET (FP) PO SCH (21:41)
[2019-01-31] MEDS: MELATONIN 5 MG TABLETS PO PRN (21:41)
[2019-01-31] MEDS: SUVOREXANT 15 MG TABLET PO PRN (21:42)
[2019-02-01] MEDS ORDERED: PT OWN MED DRAWER 7, Y5N ONE (08:46)
[2019-02-01] MEDS: PRENATAL VITAMINS W/ FOLIC ACID TABLET (FP) PO SCH (09:18)
[2019-02-01] MEDS: LISINOPRIL 10 MG TABLET (FP) PO SCH (09:18)
[2019-02-01] MEDS: ARIPiprazole 10 MG TABLET PO SCH (09:19)
[2019-02-01] MEDS: TOLNAFTATE 1% CREAM 15 GM TUBE TP SCH ×2 (09:20→21:29)
[2019-02-01] MEDS: hydrOXYzine PAMOATE 50 MG CAPSULE (FP) PO PRN ×2 (09:21→21:28)
[2019-02-01] MEDS: CYCLOBENZAPRINE HCL 5 MG TABLET PO PRN ×2 (09:21→21:28)
[2019-02-01] MEDS: NICOTINE 21 MG/24 HOURS TOPICAL PATCH TD SCH (09:25)
--- NOTE | 2019-02-01 12:35 | PN ---
S Progress Note Note: C/o itchy vaginal odor and off-white discharge. Reports completed Metrogel Tx for 5 days from 01/19/19 to 01/23/19. Pt is an admit from detox on 01/19/19. Pt reports she is not sexually active for years and not at risk for chlamydia, gonorrhea or trich. Vital Signs - 24 hr 02/01/19 02/01/19 02/01/19 00:30 03:30 07:15 Temperature 98.2 F Pulse Rate 90 Respiratory 18 18 18 Rate Blood Pressure 110/79 02/01/19 09:32 Temperature Pulse Rate 94 H Respiratory Rate Blood Pressure 121/83 Laboratory Tests 01/19/19 01/20/19 01/21/19 17:12 06:41 06:43 POC Glucometer 110 98 94 01/21/19 01/22/19 01/22/19 16:55 06:48 17:00 POC Glucometer 150 85 140 01/23/19 01/23/19 01/24/19 06:53 16:47 06:17 POC Glucometer 102 131 99 01/24/19 01/25/19 01/25/19 16:49 06:45 16:42 POC Glucometer 142 103 106 01/26/19 01/26/19 01/27/19 07:12 16:32 06:24 POC Glucometer 105 107 101 01/27/19 01/28/19 01/28/19 16:48 06:33 16:42 POC Glucometer 124 98 92 01/29/19 01/29/19 01/30/19 06:31 16:43 06:48 POC Glucometer 111 129 109 01/30/19 01/31/19 01/31/19 16:53 06:48 16:42 POC Glucometer 98 112 106 02/01/19 06:50 POC Glucometer 115 A/P r/o beto infection Diflucan 150 mg po x 1 Increase po fluids preferably water.
[2019-02-01] MEDS ORDERED: FLUCONAZOLE 50 MG TABLET PO ONE (14:15)
--- NOTE | 2019-02-01 14:29 | DS ---
[facility] Rehab Discharge Summary - [facility] Rehab Discharge Summary Admission Date: 01/19/19 Discharge Date: 02/02/19 - History Present History: Opioid dependence Additional Comments: Pt is a 48 y/o female with a hx of heroin use disorder admitted to rehab and scheduled to discharge on 02/02/19. Pertinent Past History: HTN Type 2 DM Mood disorder - Discharge Physical Exam Vital Signs: Vital Signs Temperature 98.2 F 02/01/19 07:15 Pulse Rate 94 H 02/01/19 09:32 Respiratory Rate 18 02/01/19 07:15 Blood Pressure 121/83 02/01/19 09:32 O2 Sat by Pulse Oximetry (%) Alert o x 3 nad oob ambulating with steady gait cardiac:s1 s2,rrr lungs:cta,katie. abdomen;soft,++fatty,nt extremities/skin:no edema, full ROM,skin intact. Pertinent Admission Physical Exam Findings: Laboratory Tests 01/19/19 01/20/19 01/21/19 17:12 06:41 06:43 POC Glucometer 110 98 94 01/21/19 01/22/19 01/22/19 16:55 06:48 17:00 POC Glucometer 150 85 140 01/23/19 01/23/19 01/24/19 06:53 16:47 06:17 POC Glucometer 102 131 99 01/24/19 01/25/19 01/25/19 16:49 06:45 16:42 POC Glucometer 142 103 106 01/26/19 01/26/19 01/27/19 07:12 16:32 06:24 POC Glucometer 105 107 101 01/27/19 01/28/19 01/28/19 16:48 06:33 16:42 POC Glucometer 124 98 92 01/29/19 01/29/19 01/30/19 06:31 16:43 06:48 POC Glucometer 111 129 109 01/30/19 01/31/19 01/31/19 16:53 06:48 16:42 POC Glucometer 98 112 106 02/01/19 06:50 POC Glucometer 115 Unremarkable/unchanged from detox - Treatment Discharge Condition: Discharge condition good Hospital Course: Rehabilitated safely and responded well CD aftercare referral accepted. - Medication Discharge Medications: Ambulatory Orders Aripiprazole [Abilify] 20 mg PO HS #20 tablet 02/01/19 Lisinopril [Prinivil] 10 mg PO DAILY #14 tablet 02/01/19 Metformin HCl [Metformin HCl ER] 1,000 mg PO DAILY 14 Days tab.er.24h 02/01/19 - Medication-Assisted Treatment (MAT) Medication-Assisted Treatment (MAT): No - Discharge Instructions Diet, activity, other medical instructions: Diet:KAUSHAL/NCS Activity: oob ad carmella Other medical instructions:Follow up with primary care provider Dr. Mariee @ [address] [place] [address] for maedical management within 1-2 weeks after discharge. follow up with CD aftercare referral recommendations as scheduled at [facility]. - Diagnosis (1) Opioid dependence, uncomplicated Status: Chronic (2) HTN (hypertension) Status: Chronic Qualifiers: Hypertension type: essential hypertension Qualified Code(s): I10 - Essential (primary) hypertension (3) Nicotine dependence Status: Chronic Qualifiers: Nicotine product type: cigarettes Substance use status: uncomplicated Qualified Code(s): F17.210 - Nicotine dependence, cigarettes, uncomplicated (4) Type 2 diabetes mellitus Status: Chronic - Follow-up Referral Minutes to complete discharge: 25 - AMA Did Patient Leave Against Medical Advice: No
--- NOTE | 2019-02-01 14:56 | PN ---
S Progress Note Note: Patient is scheduled for discharge tomorrow. Script fr 30 days supply of Abilify 20 mg/day will be electronically transmitted to [facility] at [address] [place] [address]
[2019-02-01] MEDS: THIAMINE HCL 100 MG TABLET (FP) PO SCH (21:28)
[2019-02-01] MEDS: SUVOREXANT 15 MG TABLET PO PRN (21:29)
[2019-02-01] MEDS ORDERED: SUVOREXANT 15 MG TABLET PO PRN (22:00)
[2019-02-02 07:05] VITALS: TEMP 97.8
[2019-02-02] MEDS: NICOTINE 21 MG/24 HOURS TOPICAL PATCH TD SCH (09:12)
[2019-02-02] MEDS: LISINOPRIL 10 MG TABLET (FP) PO SCH (09:12)
[2019-02-02] MEDS: PRENATAL VITAMINS W/ FOLIC ACID TABLET (FP) PO SCH (09:12)
[2019-02-02] MEDS: ARIPiprazole 10 MG TABLET PO SCH (09:12)
[2019-02-02] MEDS: TOLNAFTATE 1% CREAM 15 GM TUBE TP SCH (09:13)
[2019-02-02 09:23] VITALS: BP 130/84; PULSE 96
--- NOTE | 2019-02-02 11:42 | PN ---
S Progress Note Note: Pt was discharged today in stable condition as scheduled. Vital Signs - 24 hr 02/02/19 02/02/19 02/02/19 00:30 03:30 07:04 Temperature 97.8 F Pulse Rate 93 H Respiratory 18 16 16 Rate Blood Pressure 114/73 02/02/19 09:23 Temperature Pulse Rate 96 H Respiratory 18 Rate Blood Pressure 130/84 Alert o x 3. Denies s/h/i oob ambulating with steady gait NAD Reminded to follow up with treatment recommendations.
== END 2019-02-02 09:30 | disposition home or self-care (01) | DRG 772 ==
LOC: YASAS 12:51 → Y3E 12:52
PROVIDERS: ADMIT Neuromusculoskeletal Medicine & OMM; ATTEND Neuromusculoskeletal Medicine & OMM
PROC: HZ42ZZZ Group Counseling for Substance Abuse Treatment, Cognitive-Behavioral (ICD-10-PCS; principal; 2019-01-19)
DX: F11.20 Opioid dependence, uncomplicated (principal); F17.210 Nicotine dependence, cigarettes, uncomplicated; F19.282 Other psychoactive substance dependence with psychoactive substance-induced sleep disorder; F39 Unspecified mood [affective] disorder; F20.9 Schizophrenia, unspecified; I10 Essential (primary) hypertension; E11.9 Type 2 diabetes mellitus without complications; Z79.84 Long term (current) use of oral hypoglycemic drugs; Z90.49 Acquired absence of other specified parts of digestive tract; Z90.710 Acquired absence of both cervix and uterus
CPT/HCPCS: 71046-TC-FY; 82962; J0735

== ENCOUNTER 2020-09-26 14:38 | Inpatient (IN) | payer OTHER ==
[2020-09-26] MEDS ORDERED: MAG HYDROX/AL HYDROX/SIMETH 30 ML UNIT-DOSE CUP PO PRN (16:10)
[2020-09-26] MEDS ORDERED: MAGNESIUM CITRATE 300 ML BOTTLE PO PRN (16:10)
[2020-09-26] MEDS ORDERED: METHOCARBAMOL 500 MG TABLET PO PRN (16:10)
[2020-09-26] MEDS ORDERED: IBUPROFEN 400 MG TABLET (FP) PO PRN (16:10)
[2020-09-26] MEDS ORDERED: METHADONE HCL 10 MG TABLET (FOR DETOX USE ONLY) PO ONE (16:10)
[2020-09-26] MEDS ORDERED: cloNIDine HCL 0.1 MG TABLET PO PRN (16:10)
[2020-09-26] MEDS ORDERED: NICOTINE POLACRILEX 2 MG GUM BUC PRN (16:10)
[2020-09-26] MEDS ORDERED: BISMUTH SUBSALICYLATE 524 MG/30 ML PO PRN (16:10)
[2020-09-26] MEDS ORDERED: MENTHOL/PHENOL 1 EACH UD MM PRN (16:10)
[2020-09-26] MEDS ORDERED: MAGNESIUM HYDROX 2400MG/30ML ORAL SUSPENSION 30 ML CUP PO PRN (16:10)
[2020-09-26] MEDS ORDERED: ACETAMINOPHEN 325 MG TABLET (FP) PO PRN ×2 (16:10)
[2020-09-26] MEDS ORDERED: ONDANSETRON *ODT* 4 MG TABLET SL PRN (16:10)
[2020-09-26 16:47] VITALS: BMI 37.5
[2020-09-26] MEDS: hydrOXYzine PAMOATE 25 MG CAPSULE (FP) PO SCH ×2 (17:39→22:44)
[2020-09-26] MEDS: NICOTINE 21 MG/24 HOURS TOPICAL PATCH TD SCH (17:40)
[2020-09-26] MEDS ORDERED: MELATONIN 5 MG TABLETS PO SCH (22:00)
[2020-09-26] MEDS: THIAMINE HCL 100 MG TABLET (FP) PO SCH (22:44)
[2020-09-27] MEDS: hydrOXYzine PAMOATE 25 MG CAPSULE (FP) PO SCH ×5 (05:40→22:20)
[2020-09-27] MEDS ORDERED: METHADONE HCL 10 MG TABLET (FOR DETOX USE ONLY) ONE (08:47)
[2020-09-27] MEDS ORDERED: METHADONE HCL 5 MG TABLET (FOR DETOX USE ONLY) ONE (08:47)
[2020-09-27] MEDS ORDERED: METHADONE (DETOX) 20 MG, METHADONE (DETOX) 5 MG PO ONE (10:00)
[2020-09-27] MEDS: PRENATAL VITAMINS W/ FOLIC ACID TABLET (FP) PO SCH (10:05)
[2020-09-27] MEDS: LISINOPRIL 10 MG TABLET PO SCH (10:05)
[2020-09-27] MEDS: NICOTINE 21 MG/24 HOURS TOPICAL PATCH TD SCH (10:05)
[2020-09-27 11:35] LABS: HEMATOCRIT 35.8 % (32.4-45.2); HEMOGLOBIN 11.4 GM/dL (10.7-15.3); MCH 24.5 pg (25.7-33.7); MCHC 31.9 g/dl (32.0-36.0); MEAN CELL VOLUME 76.9 fl (80-96); MEAN PLT VOLUME 8.1 fl (7.5-11.1); PLATELET COUNT 369 10^3/uL (134-434); RBC 4.65 M/mm3 (3.60-5.2); WHITE BLOOD COUNT 8.3 K/mm3 (4.0-10.0)
[2020-09-27 11:41] LABS: ALBUMIN 2.9 g/dl (3.4-5.0); CREATININE 0.8 mg/dL (0.55-1.3)
[2020-09-27 11:42] LABS: BLOOD UREA NITROGEN 9.4 mg/dL (7-18)
[2020-09-27 11:43] LABS: BILIRUBIN,TOTAL 0.2 mg/dL (0.2-1); CALCIUM 8.7 mg/dL (8.5-10.1); TOT PROT 6.8 g/dl (6.4-8.2)
[2020-09-27] MEDS: ARIPiprazole 5 MG TABLET PO SCH (12:35)
[2020-09-27] MEDS: THIAMINE HCL 100 MG TABLET (FP) PO SCH (22:20)
[2020-09-27] MEDS: SUVOREXANT 10 MG TABLET PO PRN (22:23)
[2020-09-28] MEDS: hydrOXYzine PAMOATE 25 MG CAPSULE (FP) PO SCH ×6 (05:56→22:11)
[2020-09-28] MEDS ORDERED: METHADONE HCL 10 MG TABLET (FOR DETOX USE ONLY) PO ONE (10:00)
[2020-09-28] MEDS: PRENATAL VITAMINS W/ FOLIC ACID TABLET (FP) PO SCH (10:13)
[2020-09-28] MEDS: NICOTINE 21 MG/24 HOURS TOPICAL PATCH TD SCH (10:13)
[2020-09-28] MEDS: LISINOPRIL 10 MG TABLET PO SCH (10:13)
[2020-09-28] MEDS: ARIPiprazole 5 MG TABLET PO SCH (10:13)
[2020-09-28] MEDS ORDERED: PENICILLIN G BENZATHINE 2,400,000 UNIT/4 ML PFS IM ONE (11:23)
[2020-09-28] MEDS ORDERED: COVID-19 VAC,AD26(JANSSEN)/PF 0.5 ML IM ONE (16:48)
[2020-09-28] MEDS: THIAMINE HCL 100 MG TABLET (FP) PO SCH (22:11)
[2020-09-28] MEDS: SUVOREXANT 10 MG TABLET PO PRN (22:13)
[2020-09-29] MEDS: hydrOXYzine PAMOATE 25 MG CAPSULE (FP) PO SCH ×5 (06:04→22:23)
[2020-09-29] MEDS ORDERED: METHADONE HCL 10 MG TABLET (FOR DETOX USE ONLY) ONE (09:27)
[2020-09-29] MEDS ORDERED: METHADONE HCL 5 MG TABLET (FOR DETOX USE ONLY) ONE (09:27)
[2020-09-29] MEDS ORDERED: METHADONE (DETOX) 10 MG, METHADONE (DETOX) 5 MG PO ONE (10:00)
[2020-09-29] MEDS: ARIPiprazole 5 MG TABLET PO SCH (10:22)
[2020-09-29] MEDS: NICOTINE 21 MG/24 HOURS TOPICAL PATCH TD SCH (10:22)
[2020-09-29] MEDS: PRENATAL VITAMINS W/ FOLIC ACID TABLET (FP) PO SCH (10:22)
[2020-09-29] MEDS: LISINOPRIL 10 MG TABLET PO SCH (10:22)
[2020-09-29] MEDS ORDERED: cloNIDine HCL 0.1 MG TABLET PO ONE (13:30)
[2020-09-29] MEDS: SUVOREXANT 10 MG TABLET PO PRN (22:22)
[2020-09-29] MEDS: THIAMINE HCL 100 MG TABLET (FP) PO SCH (22:23)
[2020-09-30] MEDS: hydrOXYzine PAMOATE 25 MG CAPSULE (FP) PO SCH ×5 (06:53→22:16)
[2020-09-30] MEDS ORDERED: METHADONE HCL 10 MG TABLET (FOR DETOX USE ONLY) PO ONE (10:00)
[2020-09-30] MEDS: ARIPiprazole 5 MG TABLET PO SCH (10:20)
[2020-09-30] MEDS: PRENATAL VITAMINS W/ FOLIC ACID TABLET (FP) PO SCH (10:20)
[2020-09-30] MEDS: LISINOPRIL 10 MG TABLET PO SCH (10:20)
[2020-09-30] MEDS: NICOTINE 21 MG/24 HOURS TOPICAL PATCH TD SCH (10:23)
[2020-09-30] MEDS: THIAMINE HCL 100 MG TABLET (FP) PO SCH (22:16)
[2020-09-30] MEDS ORDERED: SUVOREXANT 10 MG TABLET PO PRN (22:20)
[2020-09-30 22:51] VITALS: PULSE 64
[2020-10-01] MEDS ORDERED: METHADONE HCL 5 MG TABLET (FOR DETOX USE ONLY) PO ONE (06:00)
[2020-10-01] MEDS: hydrOXYzine PAMOATE 25 MG CAPSULE (FP) PO SCH (06:01)
[2020-10-01 07:26] VITALS: BP 130/84; TEMP 98.4
[2020-10-01] MEDS: LISINOPRIL 10 MG TABLET PO SCH (09:41)
[2020-10-01] MEDS: ARIPiprazole 5 MG TABLET PO SCH (09:41)
== END 2020-10-01 09:37 | disposition home or self-care (01) | DRG 773 ==
LOC: YASAS 14:38 → Y6N 16:39
PROVIDERS: ADMIT Allergy & Immunology; ATTEND Allergy & Immunology
PROC: HZ2ZZZZ Detoxification Services for Substance Abuse Treatment (ICD-10-PCS; principal; 2020-09-26)
DX: F11.23 Opioid dependence with withdrawal (principal); F17.213 Nicotine dependence, cigarettes, with withdrawal; F19.282 Other psychoactive substance dependence with psychoactive substance-induced sleep disorder; F20.9 Schizophrenia, unspecified; F32.9 Major depressive disorder, single episode, unspecified; F43.10 Post-traumatic stress disorder, unspecified; I10 Essential (primary) hypertension; E11.9 Type 2 diabetes mellitus without complications; Z79.84 Long term (current) use of oral hypoglycemic drugs; Z53.9 Procedure and treatment not carried out, unspecified reason; Z62.810 Personal history of physical and sexual abuse in childhood; E66.9 Obesity, unspecified; Z68.37 Body mass index [BMI] 37.0-37.9, adult; Z85.42 Personal history of malignant neoplasm of other parts of uterus; Z90.710 Acquired absence of both cervix and uterus; Z90.49 Acquired absence of other specified parts of digestive tract
CPT/HCPCS: 36415; 80053; 82962; 85027; 86593; 86780; 93005; 93010; C9803; J0735; U0003; U0005

== ENCOUNTER 2021-06-27 13:37 | Inpatient (IN) | payer OTHER ==
[2021-06-27] MEDS ORDERED: LOPERAMIDE HCL 2 MG CAPSULE PO PRN (15:20)
[2021-06-27] MEDS ORDERED: MAG HYDROX/AL HYDROX/SIMETH 30 ML UNIT-DOSE CUP PO PRN (15:20)
[2021-06-27] MEDS ORDERED: BISMUTH SUBSALICYLATE 262 MG/15 ML BTL PO PRN (15:20)
[2021-06-27] MEDS ORDERED: MAGNESIUM HYDROX 2400MG/30ML ORAL SUSPENSION 30 ML CUP PO PRN (15:20)
[2021-06-27] MEDS ORDERED: NICOTINE 10 MG CARTRIDGE (INHALER) IH PRN (15:20)
[2021-06-27] MEDS ORDERED: ONDANSETRON *ODT* 4 MG TABLET SL PRN (15:20)
[2021-06-27] MEDS ORDERED: MENTHOL/PHENOL 1 EACH UD MM PRN (15:20)
[2021-06-27] MEDS ORDERED: NALOXONE HCL 0.4 MG/ML VIAL IM PRN (15:20)
[2021-06-27] MEDS ORDERED: MAGNESIUM CITRATE 300 ML BOTTLE PO PRN (15:20)
[2021-06-27] MEDS ORDERED: ACETAMINOPHEN 325 MG TABLET (FP) PO PRN ×2 (15:20)
[2021-06-27] MEDS ORDERED: methaDONE HCL 10 MG TABLET (FOR DETOX USE ONLY) PO ONE ×2 (15:20→20:00)
[2021-06-27] MEDS ORDERED: DICYCLOMINE HCL 10 MG CAPSULE PO PRN (15:20)
[2021-06-27 18:50] VITALS: BMI 37.0
[2021-06-27] MEDS: hydrOXYzine PAMOATE 25 MG CAPSULE (FP) PO SCH ×2 (20:08→23:04)
[2021-06-27] MEDS: LISINOPRIL 10 MG TABLET PO SCH (20:09)
[2021-06-27] MEDS: INSULIN SLIDING SCALE (NOVOLOG) 1 VIAL SQ SCH (20:09)
[2021-06-27] MEDS: THIAMINE HCL 100 MG TABLET (FP) PO SCH (23:04)
[2021-06-27] MEDS: MELATONIN 5 MG TABLETS PO SCH (23:04)
[2021-06-28] MEDS: hydrOXYzine PAMOATE 25 MG CAPSULE (FP) PO SCH ×5 (07:38→23:14)
[2021-06-28] MEDS: INSULIN SLIDING SCALE (NOVOLOG) 1 VIAL SQ SCH ×2 (08:16→17:48)
[2021-06-28] MEDS ORDERED: methaDONE HCL 10 MG TABLET (FOR DETOX USE ONLY) ONE (09:12)
[2021-06-28] MEDS: PRENATAL VITAMINS W/ FOLIC ACID TABLET (FP) PO SCH (11:01)
[2021-06-28] MEDS: LISINOPRIL 10 MG TABLET PO SCH (11:04)
[2021-06-28] MEDS: METHOCARBAMOL 500 MG TABLET PO PRN ×2 (11:05→23:14)
[2021-06-28 12:16] LABS: HEMATOCRIT 34.6 % (32.4-45.2); HEMOGLOBIN 10.9 GM/dL (10.7-15.3); MCH 24.5 pg (25.7-33.7); MCHC 31.6 g/dl (32.0-36.0); MEAN CELL VOLUME 77.6 fl (80-96); MEAN PLT VOLUME 8.6 fl (7.5-11.1); PLATELET COUNT 304 10^3/uL (134-434); RBC 4.46 M/mm3 (3.60-5.2); RDW 16.9 % (11.6-15.6); WHITE BLOOD COUNT 8.2 K/mm3 (4.0-10.0)
[2021-06-28 12:23] LABS: BILIRUBIN,TOTAL 0.2 mg/dL (0.2-1); TOT PROT 6.4 g/dl (6.4-8.2)
[2021-06-28 12:25] LABS: CALCIUM 9.1 mg/dL (8.5-10.1)
[2021-06-28 12:26] LABS: ALBUMIN 3.1 g/dl (3.4-5.0); BLOOD UREA NITROGEN 9.4 mg/dL (7-18)
[2021-06-28 12:28] LABS: CREATININE 0.8 mg/dL (0.55-1.3)
[2021-06-28 14:08] LABS: SARS-CoV-2 NAA Not Detected (Not Detected)
[2021-06-28] MEDS: cloNIDine HCL 0.1 MG TABLET PO PRN (17:38)
[2021-06-28] MEDS: MELATONIN 5 MG TABLETS PO SCH (23:14)
[2021-06-28] MEDS: THIAMINE HCL 100 MG TABLET (FP) PO SCH (23:14)
[2021-06-28] MEDS: IBUPROFEN 400 MG TABLET (FP) PO PRN (23:14)
[2021-06-29] MEDS: METHOCARBAMOL 500 MG TABLET PO PRN ×2 (07:01→18:23)
[2021-06-29] MEDS: hydrOXYzine PAMOATE 25 MG CAPSULE (FP) PO SCH ×5 (07:03→22:43)
[2021-06-29] MEDS: INSULIN SLIDING SCALE (NOVOLOG) 1 VIAL SQ SCH ×2 (07:03→18:21)
[2021-06-29] MEDS ORDERED: methaDONE HCL 10 MG TABLET (FOR DETOX USE ONLY) PO ONE (10:00)
[2021-06-29] MEDS: LISINOPRIL 10 MG TABLET PO SCH (10:50)
[2021-06-29] MEDS: PRENATAL VITAMINS W/ FOLIC ACID TABLET (FP) PO SCH (10:50)
[2021-06-29] MEDS: CYANOCOBALAMIN 1,000 MCG TABLET (FP) PO SCH (14:08)
[2021-06-29 18:08] LABS: SARS-CoV-2 NAA Not Detected (Not Detected)
[2021-06-29] MEDS: FERROUS SO4 325 MG TABLET (FP) PO SCH (18:21)
[2021-06-29] MEDS: THIAMINE HCL 100 MG TABLET (FP) PO SCH (22:43)
[2021-06-29] MEDS: MELATONIN 5 MG TABLETS PO SCH (22:43)
[2021-06-29] MEDS: cloNIDine HCL 0.1 MG TABLET PO PRN (22:45)
[2021-06-30] MEDS: FERROUS SO4 325 MG TABLET (FP) PO SCH ×2 (07:08→18:08)
[2021-06-30] MEDS: hydrOXYzine PAMOATE 25 MG CAPSULE (FP) PO SCH ×5 (07:08→22:49)
[2021-06-30] MEDS: INSULIN SLIDING SCALE (NOVOLOG) 1 VIAL SQ SCH ×2 (08:18→18:08)
[2021-06-30] MEDS ORDERED: methaDONE HCL 10 MG TABLET (FOR DETOX USE ONLY) ONE ×2 (08:50→11:47)
[2021-06-30] MEDS ORDERED: TRIMETHOBENZAMIDE HCL 200MG/2ML INJ IM ONE (10:50)
[2021-06-30] MEDS: LISINOPRIL 10 MG TABLET PO SCH (11:19)
[2021-06-30] MEDS: PRENATAL VITAMINS W/ FOLIC ACID TABLET (FP) PO SCH (12:17)
[2021-06-30] MEDS: CYANOCOBALAMIN 1,000 MCG TABLET (FP) PO SCH (12:18)
[2021-06-30] MEDS ORDERED: cloNIDine HCL 0.1 MG TABLET PO ONE (13:41)
[2021-06-30] MEDS: ONDANSETRON *ODT* 4 MG TABLET SL PRN ×2 (14:49→21:12)
[2021-06-30] MEDS: diazePAM 5 MG TABLET PO PRN ×2 (18:14→22:37)
[2021-06-30] MEDS: cloNIDine HCL 0.1 MG TABLET PO PRN (18:15)
[2021-06-30] MEDS: IBUPROFEN 400 MG TABLET (FP) PO PRN (22:37)
[2021-06-30] MEDS: METHOCARBAMOL 500 MG TABLET PO PRN (22:38)
[2021-06-30] MEDS: THIAMINE HCL 100 MG TABLET (FP) PO SCH (22:49)
[2021-06-30] MEDS: MELATONIN 5 MG TABLETS PO SCH (22:49)
[2021-07-01] MEDS: hydrOXYzine PAMOATE 25 MG CAPSULE (FP) PO SCH ×5 (06:34→22:59)
[2021-07-01] MEDS: cloNIDine HCL 0.1 MG TABLET PO PRN (06:35)
[2021-07-01] MEDS: diazePAM 5 MG TABLET PO PRN ×3 (06:35→22:59)
[2021-07-01] MEDS: INSULIN SLIDING SCALE (NOVOLOG) 1 VIAL SQ SCH ×2 (06:37→17:51)
[2021-07-01] MEDS: FERROUS SO4 325 MG TABLET (FP) PO SCH ×2 (07:23→18:04)
[2021-07-01] MEDS ORDERED: methaDONE HCL 10 MG TABLET (FOR DETOX USE ONLY) PO ONE (10:00)
[2021-07-01] MEDS: PRENATAL VITAMINS W/ FOLIC ACID TABLET (FP) PO SCH (10:48)
[2021-07-01] MEDS: LISINOPRIL 10 MG TABLET PO SCH (10:48)
[2021-07-01] MEDS: CYANOCOBALAMIN 1,000 MCG TABLET (FP) PO SCH (10:48)
[2021-07-01] MEDS: MELATONIN 5 MG TABLETS PO SCH (22:59)
[2021-07-01] MEDS: THIAMINE HCL 100 MG TABLET (FP) PO SCH (22:59)
[2021-07-02] MEDS: hydrOXYzine PAMOATE 25 MG CAPSULE (FP) PO SCH ×5 (07:00→21:34)
[2021-07-02] MEDS: FERROUS SO4 325 MG TABLET (FP) PO SCH ×2 (07:00→18:37)
[2021-07-02] MEDS: ONDANSETRON *ODT* 4 MG TABLET SL PRN (07:00)
[2021-07-02] MEDS: diazePAM 5 MG TABLET PO PRN ×3 (07:00→21:35)
[2021-07-02] MEDS: INSULIN SLIDING SCALE (NOVOLOG) 1 VIAL SQ SCH ×2 (07:33→17:26)
[2021-07-02] MEDS: LISINOPRIL 10 MG TABLET PO SCH (11:11)
[2021-07-02] MEDS: PRENATAL VITAMINS W/ FOLIC ACID TABLET (FP) PO SCH (11:11)
[2021-07-02] MEDS: CYANOCOBALAMIN 1,000 MCG TABLET (FP) PO SCH (11:12)
[2021-07-02] MEDS ORDERED: methaDONE HCL 10 MG TABLET (FOR DETOX USE ONLY) PO ONE (14:57)
[2021-07-02] MEDS: MELATONIN 5 MG TABLETS PO SCH (21:34)
[2021-07-02] MEDS: THIAMINE HCL 100 MG TABLET (FP) PO SCH (21:34)
[2021-07-03] MEDS: hydrOXYzine PAMOATE 25 MG CAPSULE (FP) PO SCH (06:32)
[2021-07-03] MEDS: METHOCARBAMOL 500 MG TABLET PO PRN (06:32)
[2021-07-03] MEDS: diazePAM 5 MG TABLET PO PRN (06:34)
[2021-07-03] MEDS: INSULIN SLIDING SCALE (NOVOLOG) 1 VIAL SQ SCH (07:24)
[2021-07-03] MEDS: FERROUS SO4 325 MG TABLET (FP) PO SCH (07:27)
[2021-07-03 08:40] VITALS: BP 108/73; PULSE 64; TEMP 97.5
== END 2021-07-03 09:49 | disposition home or self-care (01) | DRG 773 ==
LOC: YASAS 13:37 → Y3N 18:31
PROVIDERS: ADMIT Allergy & Immunology; ATTEND Allergy & Immunology
PROC: HZ2ZZZZ Detoxification Services for Substance Abuse Treatment (ICD-10-PCS; principal; 2021-06-27)
DX: F11.23 Opioid dependence with withdrawal (principal); F14.20 Cocaine dependence, uncomplicated; F17.210 Nicotine dependence, cigarettes, uncomplicated; F20.9 Schizophrenia, unspecified; F43.10 Post-traumatic stress disorder, unspecified; I10 Essential (primary) hypertension; E11.65 Type 2 diabetes mellitus with hyperglycemia; Z79.84 Long term (current) use of oral hypoglycemic drugs; D64.9 Anemia, unspecified; Z86.19 Personal history of other infectious and parasitic diseases
CPT/HCPCS: 36415; 80053; 82962; 85027; 86593; 86780; C9803-CS; J0735; Q0162; U0003; U0005

== ENCOUNTER 2022-02-20 20:37 | Inpatient (IN) | payer OTHER ==
[2022-02-20] MEDS ORDERED: ONDANSETRON 4 MG/2 ML VIAL IVPUSH ONE (20:55)
[2022-02-20] MEDS ORDERED: FAMOTIDINE 20 MG/50 ML IVPB 20 MG/50 ML MG IVPB ONE ×2 (20:55→21:39)
[2022-02-20] MEDS ORDERED: ACETAMINOPHEN 1000 MG/100 ML BAG IVPB ONE (20:55)
[2022-02-20] MEDS ORDERED: SODIUM CHLORIDE 0.9% 1000 ML INFUS.BAG IV ONE ×4 (20:55→23:27)
[2022-02-20 21:02] VITALS: BMI 34.5
[2022-02-20] MEDS ORDERED: PIPERACILLIN/TAZOB 4.5 GM 4.5 GM in DEXTROSE 5%-WATER 100 ML IVPB ONE (21:16)
[2022-02-20] MEDS ORDERED: ACETAMINOPHEN INJECTION 100 ML IVPB ONE (21:38)
[2022-02-20] MEDS ORDERED: ONDANSETRON 4 MG/2 ML VIAL ONE (21:38)
[2022-02-20] MEDS ORDERED: PIPERACILLIN/TAZOB 4.5 GM 4.5 GM/100 ML BAG IVPB ONE (21:39)
[2022-02-20 22:00] LABS: VENOUS BASE EXCESS -9.5 mmol/L (-2-2); VENOUS O2 SATURATION 59.1 % (70-80); VENOUS PCO2 54.6 mmHg (38-52)
[2022-02-20 22:03] LABS: BASO % 0.6 % (0-2.0); EOS % 0.7 % (0-4.5); HEMATOCRIT 49.9 % (32.4-45.2); HEMOGLOBIN 15.7 GM/dL (10.7-15.3); MCH 24.2 pg (25.7-33.7); MCHC 31.4 g/dl (32.0-36.0); MEAN PLT VOLUME 8.5 fl (7.5-11.1); MONO % 5.8 % (3.8-10.2); NEUT % 66.9 % (42.8-82.8); PLATELET COUNT 532 10^3/uL (134-434); RBC 6.48 M/mm3 (3.60-5.2); RDW 16.4 % (11.6-15.6); WHITE BLOOD COUNT 15.3 K/mm3 (4.0-10.0)
[2022-02-20 22:11] LABS: CALCIUM 10.6 mg/dL (8.5-10.1); INR 1.17 (0.83-1.09); PROTHROMBIN TIME (PATIENT) 13.5 SEC (9.7-13.0)
[2022-02-20 22:12] LABS: ALBUMIN 4.4 g/dl (3.4-5.0); BLOOD UREA NITROGEN 60.2 mg/dL (7-18); MAGNESIUM 2.3 mg/dL (1.8-2.4)
[2022-02-20 22:13] LABS: VENOUS PH 7.173 (7.310-7.410)
[2022-02-20 22:14] LABS: ACTIVATED PTT 31.9 SECONDS (25.2-36.5)
[2022-02-20 22:15] LABS: CREATININE 6.4 mg/dL (0.55-1.3)
[2022-02-20 22:16] LABS: BILIRUBIN,TOTAL 0.4 mg/dL (0.2-1); TOT PROT 9.4 g/dl (6.4-8.2)
[2022-02-20] MEDS ORDERED: SODIUM CHLORIDE 0.9% 500 ML INFUS.BAG IV ONE (22:22)
[2022-02-20] MEDS ORDERED: NOREPINEPHRINE BITARTRATE 4 MG/4 ML ML IV ONE (22:33)
[2022-02-20 22:43] LABS: LACTIC ACID 2.3 mmol/L (0.4-2.0)
[2022-02-20] MEDS ORDERED: NOREPINEPHRINE BITARTRATE/D5W 8 MG/250 ML BAG IVPB SCH (22:45)
[2022-02-21 02:33] LABS: BLOOD UREA NITROGEN 53.3 mg/dL (7-18)
[2022-02-21 02:36] LABS: CREATININE 4.6 mg/dL (0.55-1.3)
[2022-02-21 02:38] LABS: BILIRUBIN,TOTAL 0.3 mg/dL (0.2-1)
[2022-02-21 02:41] LABS: ALBUMIN 3.1 g/dl (3.4-5.0); CALCIUM 8.2 mg/dL (8.5-10.1); TOT PROT 6.8 g/dl (6.4-8.2)
[2022-02-21 03:19] LABS: EPI CELLS 30 /uL (0-25.1); HYALINE CASTS 17 /uL (0-3.1); URINE APPEARANCE CLOUDY; URINE BACTERIA 48 /uL (0-1359); URINE BILIRUBIN NEGATIVE (NEGATIVE); URINE COLOR YELLOW; URINE GLUCOSE (UA) NEGATIVE (NEGATIVE); URINE KETONE NEGATIVE (NEGATIVE); URINE LEUK ESTERASE TRACE (NEGATIVE); URINE NITRITE NEGATIVE (NEGATIVE); URINE PROTEIN 1+ (NEGATIVE); URINE RBC 19 /uL (0-23.9); URINE UROBILINOGEN 0.2 mg/dL (0.2-1.0); URINE WBC 54 /uL (0-25.8)
[2022-02-21] MEDS ORDERED: ACETAMINOPHEN 325 MG TABLET (FP) PO PRN ×2 (04:29→16:18)
[2022-02-21] MEDS ORDERED: LACTATED RINGERS SOLUTION 1,000 ML/1,000 ML INFUS.BAG IV SCH (04:45)
[2022-02-21] MEDS: HEPARIN NA (PORCINE) 5,000 UNITS/ML 1ML VIAL SQ SCH ×3 (06:50→22:09)
[2022-02-21 07:53] LABS: BASO % 0.7 % (0-2.0); EOS % 0.9 % (0-4.5); HEMATOCRIT 38.6 % (32.4-45.2); HEMOGLOBIN 12.2 GM/dL (10.7-15.3); LYMPH % 32.2 % (8-40); MCHC 31.5 g/dl (32.0-36.0); MEAN CELL VOLUME 76.3 fl (80-96); MEAN PLT VOLUME 8.3 fl (7.5-11.1); MONO % 7.4 % (3.8-10.2); NEUT % 58.8 % (42.8-82.8); PLATELET COUNT 397 10^3/uL (134-434); RBC 5.06 M/mm3 (3.60-5.2); RDW 16.5 % (11.6-15.6)
[2022-02-21 08:12] LABS: ALBUMIN 3.1 g/dl (3.4-5.0); BLOOD UREA NITROGEN 49.2 mg/dL (7-18); CALCIUM 8.3 mg/dL (8.5-10.1); MAGNESIUM 1.6 mg/dL (1.8-2.4)
[2022-02-21 08:15] LABS: CREATININE 3.8 mg/dL (0.55-1.3); PHOSPHOROUS 5.2 mg/dL (2.5-4.9)
[2022-02-21 08:17] LABS: BILIRUBIN,TOTAL 0.4 mg/dL (0.2-1); TOT PROT 6.7 g/dl (6.4-8.2)
[2022-02-21 08:21] LABS: YEAST NEGATIVE (NEGATIVE)
[2022-02-21] MEDS ORDERED: ARIPiprazole 5 MG TABLET ONE (09:58)
[2022-02-21] MEDS ORDERED: PIPERACILLIN/TAZOB 4.5 GM 4.5 GM in DEXTROSE 5%-WATER 100 ML IVPB SCH (10:00)
[2022-02-21] MEDS ORDERED: ARIPiprazole 10 MG TABLET PO SCH (10:00)
[2022-02-21] MEDS ORDERED: POLYETHYLENE GLYCOL (HEALTHYLAX) 3350 17 GM PACKET PO SCH (10:00)
[2022-02-21] MEDS ORDERED: PIPERACILLIN/TAZOB 2.25 GM 2.25 GM in DEXTROSE 5%-WATER - 50 ML IVPB SCH ×2 (10:00→18:00)
[2022-02-21] MEDS ORDERED: MUPIROCIN 2% TOPICAL OINTMENT FOR DECOLONIZATION NS SCH (10:00)
[2022-02-21] MEDS ORDERED: traMADol HCL 50 MG TABLET PO ONE (12:12)
[2022-02-21] MEDS ORDERED: MAGNESIUM SULF 50% (8.12 MEQ/2 ML-1 GM VIAL) IVPB ONE (12:26)
[2022-02-21] MEDS ORDERED: TAMSULOSIN HCL 0.4 MG CAP PO SCH (12:36)
[2022-02-21 13:15] LABS: EPI CELLS 13 /uL (0-25.1); HYALINE CASTS 3 /uL (0-3.1); URINE APPEARANCE CLOUDY; URINE BACTERIA 29 /uL (0-1359); URINE BILIRUBIN NEGATIVE (NEGATIVE); URINE COLOR YELLOW; URINE GLUCOSE (UA) NEGATIVE (NEGATIVE); URINE KETONE NEGATIVE (NEGATIVE); URINE LEUK ESTERASE TRACE (NEGATIVE); URINE NITRITE NEGATIVE (NEGATIVE); URINE PROTEIN TRACE (NEGATIVE); URINE RBC 46 /uL (0-23.9); URINE UROBILINOGEN 0.2 mg/dL (0.2-1.0); URINE WBC 75 /uL (0-25.8)
[2022-02-21] MEDS ORDERED: INSULIN SLIDING SCALE (NOVOLOG) 1 VIAL SQ SCH (16:30)
[2022-02-21] MEDS: LACTATED RINGERS SOLUTION 1,000 ML/1,000 ML INFUS.BAG IV SCH (17:50)
[2022-02-21] MEDS: INSULIN SLIDING SCALE (NOVOLOG) 1 VIAL SQ SCH ×2 (17:50→22:16)
[2022-02-21] MEDS ORDERED: CHLORHEXIDINE GLUCONATE 4% CLEANSER FOR DECOLONIZATION TP SCH (22:00)
[2022-02-21] MEDS: POLYETHYLENE GLYCOL (HEALTHYLAX) 3350 17 GM PACKET PO SCH (22:10)
[2022-02-22] MEDS ORDERED: MELATONIN 5 MG TABLETS PO PRN (00:03)
[2022-02-22] MEDS: HEPARIN NA (PORCINE) 5,000 UNITS/ML 1ML VIAL SQ SCH ×3 (06:25→22:08)
[2022-02-22] MEDS: INSULIN SLIDING SCALE (NOVOLOG) 1 VIAL SQ SCH ×4 (06:25→22:13)
[2022-02-22] MEDS ORDERED: ARIPiprazole 5 MG TABLET ONE (09:26)
[2022-02-22] MEDS: POLYETHYLENE GLYCOL (HEALTHYLAX) 3350 17 GM PACKET PO SCH ×2 (09:33→22:13)
[2022-02-22] MEDS: ARIPiprazole 10 MG TABLET PO SCH (09:33)
[2022-02-22] MEDS: TAMSULOSIN HCL 0.4 MG CAP PO SCH (09:33)
[2022-02-22 10:20] LABS: HEMATOCRIT 33.2 % (32.4-45.2); MCH 24.8 pg (25.7-33.7); MEAN CELL VOLUME 75.2 fl (80-96); PLATELET COUNT 334 10^3/uL (134-434); RBC 4.42 M/mm3 (3.60-5.2); RDW 15.6 % (11.6-15.6); WHITE BLOOD COUNT 7.8 K/mm3 (4.0-10.0)
[2022-02-22 11:09] LABS: ALBUMIN 2.8 g/dl (3.4-5.0)
[2022-02-22 11:12] LABS: BILIRUBIN,TOTAL 0.4 mg/dL (0.2-1); CREATININE 1.1 mg/dL (0.55-1.3); MAGNESIUM 1.7 mg/dL (1.8-2.4)
[2022-02-22 11:13] LABS: PHOSPHOROUS 2.3 mg/dL (2.5-4.9)
[2022-02-22 11:16] LABS: BLOOD UREA NITROGEN 21.8 mg/dL (7-18)
[2022-02-22] MEDS ORDERED: NAPH,MB-DB/K PH,MBDB POWDER PACKET PO ONE (16:30)
[2022-02-22] MEDS ORDERED: MAGNESIUM OXIDE 400 MG TABLET (FP) PO ONE (16:31)
[2022-02-22] MEDS: LACTATED RINGERS SOLUTION 1,000 ML/1,000 ML INFUS.BAG IV SCH (17:23)
[2022-02-22] MEDS: CEFTRIAXONE 1 GM in DEXTROSE 5%-WATER - 50 ML IVPB SCH (17:24)
[2022-02-23] MEDS: HEPARIN NA (PORCINE) 5,000 UNITS/ML 1ML VIAL SQ SCH ×2 (07:39→14:25)
[2022-02-23] MEDS: INSULIN SLIDING SCALE (NOVOLOG) 1 VIAL SQ SCH ×3 (07:40→17:22)
[2022-02-23] MEDS ORDERED: ARIPiprazole 5 MG TABLET ONE (09:16)
[2022-02-23] MEDS: POLYETHYLENE GLYCOL (HEALTHYLAX) 3350 17 GM PACKET PO SCH (09:22)
[2022-02-23] MEDS: TAMSULOSIN HCL 0.4 MG CAP PO SCH (09:22)
[2022-02-23] MEDS: CEFTRIAXONE 1 GM in DEXTROSE 5%-WATER - 50 ML IVPB SCH (09:24)
[2022-02-23] MEDS: ARIPiprazole 10 MG TABLET PO SCH (09:24)
[2022-02-23 09:35] LABS: EOS % 0.8 % (0-4.5); HEMATOCRIT 32.6 % (32.4-45.2); HEMOGLOBIN 10.6 GM/dL (10.7-15.3); LYMPH % 51.4 % (8-40); MCH 24.4 pg (25.7-33.7); MCHC 32.6 g/dl (32.0-36.0); MEAN PLT VOLUME 8.4 fl (7.5-11.1); MONO % 8.5 % (3.8-10.2); NEUT % 38.3 % (42.8-82.8); PLATELET COUNT 369 10^3/uL (134-434); RBC 4.35 M/mm3 (3.60-5.2); RDW 15.4 % (11.6-15.6)
[2022-02-23] MEDS ORDERED: CEFTRIAXONE 1 GM in DEXTROSE 5%-WATER - 50 ML IVPB SCH (10:00)
[2022-02-23 10:02] LABS: ALBUMIN 2.9 g/dl (3.4-5.0); BLOOD UREA NITROGEN 10.6 mg/dL (7-18); CALCIUM 8.9 mg/dL (8.5-10.1); MAGNESIUM 1.5 mg/dL (1.8-2.4)
[2022-02-23 10:05] LABS: CREATININE 0.8 mg/dL (0.55-1.3); PHOSPHOROUS 2.2 mg/dL (2.5-4.9)
[2022-02-23 10:06] LABS: BILIRUBIN,TOTAL 0.5 mg/dL (0.2-1)
[2022-02-23 10:07] LABS: TOT PROT 6.1 g/dl (6.4-8.2)
[2022-02-23 16:07] VITALS: TEMP 98.9
[2022-02-23 16:23] VITALS: BP 148/80; PULSE 75; RESP 16
== END 2022-02-23 21:06 | disposition home or self-care (01) | DRG 466 ==
LOC: JER 20:37 → JERBED 22:43 → JICU 02-21 03:27 → J8W 02-21 15:58
PROVIDERS: ADMIT Internal Medicine Pulmonary Disease; ATTEND Internal Medicine
DX: N99.0 Postprocedural (acute) (chronic) kidney failure (principal); A41.9 Sepsis, unspecified organism; E87.20 Acidosis, unspecified; I95.9 Hypotension, unspecified; R34 Anuria and oliguria; N13.6 Pyonephrosis; N17.9 Acute kidney failure, unspecified; E83.39 Other disorders of phosphorus metabolism; E83.42 Hypomagnesemia; F20.9 Schizophrenia, unspecified; F11.10 Opioid abuse, uncomplicated; F17.210 Nicotine dependence, cigarettes, uncomplicated; F43.10 Post-traumatic stress disorder, unspecified; Y83.9 Surgical procedure, unspecified as the cause of abnormal reaction of the patient, or of later complication, without mention of misadventure at the time of the procedure; E66.9 Obesity, unspecified; Z68.34 Body mass index [BMI] 34.0-34.9, adult
CPT/HCPCS: 0241U-QW; 36415; 71045-TC-FY; 74176-TC; 76775-TC; 80048; 80053; 80307; 81003; 82150; 82436; 82570; 82803; 82962; 83036; 83605; 83690; 83735; 84100; 84133; 84300; 84703; 85025; 85027; 85610; 85730; 86850; 86900; 86901; 87040; 87086; 93005; 93010; 97116-GP; 97161-GP; 99291; 99292; J1644

== ENCOUNTER 2024-05-19 12:44 | Inpatient (IN) | payer OTHER ==
[2024-05-19 13:06] VITALS: BMI 29.0
[2024-05-19] MEDS ORDERED: BISACODYL 5 MG TABLET.DR (FP) PO PRN (14:21)
[2024-05-19] MEDS ORDERED: NICOTINE POLACRILEX 2 MG LOZENGE BC PRN (14:21)
[2024-05-19] MEDS ORDERED: NALOXONE (NARCAN) HCL 4 MG/0.1 ML SPRAY NS PRN (14:21)
[2024-05-19] MEDS ORDERED: BENZOCAINE/MENTHOL (CHLORASEPTIC ) LOZENGE MM PRN (14:21)
[2024-05-19] MEDS ORDERED: NICOTINE POLACRILEX 2 MG GUM BUC PRN (14:21)
[2024-05-19] MEDS ORDERED: IBUPROFEN 400 MG TABLET (FP) PO PRN (14:21)
[2024-05-19] MEDS ORDERED: guaiFENesin 600 MG TABLET.ER (FP) PO PRN (14:21)
[2024-05-19] MEDS ORDERED: P-EPHED 60MG/TRIPROLIDI 2.5MG TABLET PO PRN (14:21)
[2024-05-19] MEDS ORDERED: MAGNESIUM HYDROX 2400MG/30ML ORAL SUSPENSION 30 ML CUP PO PRN (14:21)
[2024-05-19] MEDS ORDERED: MAG HYDROX/AL HYDROX/SIMETH 30 ML UNIT-DOSE CUP PO PRN (14:21)
[2024-05-19] MEDS ORDERED: BISMUTH SUBSALICYLATE 262 MG/15 ML BTL PO PRN (14:21)
[2024-05-19] MEDS ORDERED: BENZONATATE 200 MG CAPSULE PO PRN (14:21)
[2024-05-19] MEDS ORDERED: DICYCLOMINE HCL 10 MG CAPSULE PO PRN (14:21)
[2024-05-19] MEDS ORDERED: LOPERAMIDE HCL 2 MG CAPSULE PO PRN (14:21)
[2024-05-19] MEDS ORDERED: DOCUSATE SODIUM 100 MG CAPSULE (FP) PO PRN (14:21)
[2024-05-19] MEDS ORDERED: ONDANSETRON *ODT* 4 MG TABLET SL PRN (14:21)
[2024-05-19] MEDS ORDERED: POLYETHYLENE GLYCOL (HEALTHYLAX) 3350 17 GM PACKET PO PRN (14:21)
[2024-05-19] MEDS ORDERED: ACETAMINOPHEN 325 MG TABLET (FP) PO PRN (14:21)
[2024-05-19] MEDS ORDERED: INSULIN (NOVOLOG) ASPART 100 UNITS/ML 10ML VIAL ONE (17:06)
[2024-05-19] MEDS: INSULIN ASPART SLIDING SCALE (NOVOLOG) 1 VIAL SQ SCH (17:13)
[2024-05-19] MEDS: MELATONIN 5 MG TABLETS PO SCH (22:14)
[2024-05-19] MEDS: METHOCARBAMOL 500 MG TABLET PO PRN (22:15)
[2024-05-19] MEDS: IBUPROFEN 600 MG TABLET (FP) PO PRN (22:15)
[2024-05-19] MEDS: THIAMINE 100 MG TABLET PO SCH (22:15)
[2024-05-20] MEDS ORDERED: methaDONE HCL 10 MG TABLET (FOR DETOX USE ONLY) PO PRN (09:13)
[2024-05-20] MEDS: methaDONE HCL 10 MG TABLET (FOR DETOX USE ONLY) PO ONE (09:32)
[2024-05-20] MEDS: PRENATAL VITAMINS W/ FOLIC ACID TABLET (FP) PO SCH (09:32)
[2024-05-20 11:48] LABS: HEMATOCRIT 39.2 % (32.4-45.2); HEMOGLOBIN 12.3 GM/dL (10.7-15.3); MCH 24.3 pg (25.7-33.7); MCHC 31.4 g/dl (32.0-36.0); MEAN CELL VOLUME 77.3 fl (80-96); MEAN PLT VOLUME 8.8 fl (7.5-11.1); PLATELET COUNT 278 10^3/uL (134-434); RBC 5.07 M/mm3 (3.60-5.2); WHITE BLOOD COUNT 9.3 K/mm3 (4.0-10.0)
[2024-05-20 12:00] LABS: POTASSIUM 4.1 mmol/L (3.5-5.1)
[2024-05-20 12:09] LABS: ALBUMIN 3.1 g/dl (3.4-5.0); CALCIUM 9.5 mg/dL (8.5-10.1)
[2024-05-20 12:11] LABS: CREATININE 0.7 mg/dL (0.55-1.3)
[2024-05-20 12:12] LABS: BILIRUBIN,TOTAL 0.4 mg/dL (0.2-1)
[2024-05-20 12:13] LABS: TOT PROT 6.6 g/dl (6.4-8.2)
[2024-05-20 13:36] LABS: HIV INTERPRETATION NEGATIVE (NEGATIVE)
[2024-05-20] MEDS: metFORMIN HCL 500 MG TABLET (FP) PO SCH (17:17)
[2024-05-20] MEDS: cloNIDine HCL 0.1 MG TABLET PO PRN (22:11)
[2024-05-21] MEDS: QUEtiapine FUMARATE 50 MG TABLET PO SCH (22:35)
[2024-05-22] MEDS: TRIMETHOBENZAMIDE HCL 200MG/2ML INJ IM ONE (06:25)
[2024-05-22] MEDS ORDERED: INSULIN ASPART SLIDING SCALE (NOVOLOG) 1 VIAL SQ ONE (07:55)
[2024-05-22] MEDS: methaDONE HCL 10 MG TABLET (FOR DETOX USE ONLY) PO ONE (10:47)
[2024-05-22] MEDS: diazePAM 5 MG TABLET PO ONE (13:37)
[2024-05-22] MEDS: ONDANSETRON *ODT* 4 MG TABLET SL PRN (16:53)
[2024-05-22] MEDS: diazePAM 5 MG TABLET PO PRN (23:22)
[2024-05-23] MEDS: amLODIPine BESYLATE 5 MG TABLET (FP) PO SCH (10:35)
[2024-05-24] MEDS: TRIMETHOBENZAMIDE HCL 200MG/2ML INJ IM ONE (09:46)
[2024-05-24] MEDS: methaDONE HCL 10 MG TABLET (FOR DETOX USE ONLY) PO ONE (10:54)
[2024-05-24] MEDS: diazePAM 5 MG TABLET PO ONE (18:08)
[2024-05-25 09:14] VITALS: BP 134/76; PULSE 63; RESP 17; TEMP 98.1
== END 2024-05-25 11:21 | disposition home or self-care (01) | DRG 773 ==
LOC: YASAS 12:44 → Y3N 16:26
PROVIDERS: ADMIT Allergy & Immunology; ATTEND Allergy & Immunology
PROC: HZ2ZZZZ Detoxification Services for Substance Abuse Treatment (ICD-10-PCS; principal; 2024-05-19)
DX: F11.23 Opioid dependence with withdrawal (principal); F17.210 Nicotine dependence, cigarettes, uncomplicated; F43.10 Post-traumatic stress disorder, unspecified; F32.A Depression, unspecified; I10 Essential (primary) hypertension; E11.9 Type 2 diabetes mellitus without complications; Z79.84 Long term (current) use of oral hypoglycemic drugs; M25.569 Pain in unspecified knee; Z62.810 Personal history of physical and sexual abuse in childhood; Z63.8 Other specified problems related to primary support group
CPT/HCPCS: 36415; 80053; 80305; 80307; 81025; 82962; 85027; 86593; 86780; 86803; 87389; 87811; 93005; 93010; Q0162